=== PATIENT | male | born 1975 | race Caucasian/White ===

== ENCOUNTER → 2016-11-02 | Outpatient (CLI) | payer BC ==
--- NOTE | 2016-11-02 10:58 | DIAGNOSTIC IMAGING REPORT ---
LUMBAR SPINE 5 VIEWS HISTORY: Pain M54.5 Lower back [id number] COMPARISON: None. FINDINGS: Very slight levoscoliosis vertebral body stature is normal. Intervertebral this are well-preserved. No evidence for subluxation. Posterior elements are intact. No subluxation. IMPRESSION: Minimal scoliosis. Otherwise normal study Electronically signed by: Charlie Tejada M.D. 11/02/2016 10:57 AM Dictated Date/Time: 11/02/2016 10:56 AM
== END | disposition home or self-care (01) ==
LOC: C.RAD1850 10:40
PROVIDERS: ATTEND Nurse Practitioner Family
DX: M54.5 Low back pain (principal)

== ENCOUNTER → 2017-04-22 | Outpatient (CLI) | payer BC ==
[2017-04-22 10:28] LABS: ALT/SGPT 79 U/L (12-78); AST/SGOT 28 U/L (15-37); BLOOD UREA NITROGEN 18 mg/dl (7-18); BUN/CREATININE RATIO 17.8 (10-20); CALCIUM 9.2 mg/dl (8.5-10.1); CARBON DIOXIDE 27 mmol/L (21-32); CHLORIDE 106 mmol/L (98-107); CHOLESTEROL 152 mg/dl (0-200); CREATININE 0.99 mg/dl (0.60-1.40); GLUCOSE 105 mg/dl (70-99); POTASSIUM 3.7 mmol/L (3.5-5.1); SODIUM 138 mmol/L (136-145)
[2017-04-22 10:31] LABS: ALB/GLOB RATIO 1.2 (0.9-2); ALKALINE PHOSPHATASE 60 U/L (45-117); CHOLESTEROL/HDL RATIO 4.3; HDL CHOLESTEROL 35 mg/dl; LDL CHOLESTEROL CALCULATED 47 mg/dl; TRIGLYCERIDES 351 mg/dl (0-150); VERY LOW DENSITY LIPOPROT CALC 70 mg/dl
== END | disposition home or self-care (01) ==
LOC: C.LAB1850 08:10
PROVIDERS: ATTEND Nurse Practitioner Family
DX: E78.00 Pure hypercholesterolemia, unspecified (principal); E78.1 Pure hyperglyceridemia; I10 Essential (primary) hypertension

== ENCOUNTER 2017-08-02 11:57 | Emergency (ER) | payer BC, OTHER ==
[~2017-08-02] VITALS: Ht 195.6 cm; Wt 115.0 kg
[2017-08-02 12:02] VITALS: TEMP 37.1; Ht 195.6 cm; Wt 115.0 kg
[2017-08-02] MEDS ORDERED: BUPIVACAINE 0.5 % 5 MG/1 ML MPF 30ML VIAL INFIL STA (12:26)
[2017-08-02] MEDS ORDERED: XYLOCAINE 1%/SOD BICARB 20 ML VIAL INFIL STA (12:26)
--- NOTE | 2017-08-02 13:12 | EMERGENCY ROOM VISIT NOTE ---
ED Visit Note First contact with patient: 12:09 CHIEF COMPLAINT: Finger injury today HISTORY OF PRESENT ILLNESS: This [id number] 42-year-old male patient presents to the emergency department approximately 1 hour after they injured the left middle finger while playing basketball. The patient has been unable to move it at the PIP joint since and there is moderate and constant pain. The patient rates the pain as sharp and 8/10. No previous injuries to the finger. The patient has taken no medications relief of the pain. REVIEW OF SYSTEMS: A 6 system review of systems was completed with positives and pertinent negatives listed in the HPI. ALLERGIES: GERD, hyperlipidemia MEDICATIONS: Atorvastatin, omeprazole PMH: None SOCIAL HISTORY: The patient lives locally with family. He denies drug, alcohol , tobacco use. PHYSICAL EXAM: Vital Signs: Reviewed Nurse's notes, vital signs stable. GENERAL : This is a 42-year-old white male, in no acute distress, but appears to be in pain, well-developed, well-nourished. MUSCULOSKELETAL: There is an obvious deformity at the PIP joint of the left middle finger with dorsal dislocation of the middle phalanx. The patient is unable to move the PIP joint. The distal dislocated portion of the finger is pale but is sensate. SKIN: There is no laceration or abrasion. Capillary refill is less than two seconds. RADIOLOGY: L FINGER(S) MIN 2 VIEWS ROUTINE CLINICAL HISTORY: r/o injury to left 3rd finger trauma. Pain. COMPARISON: None. DISCUSSION: Dorsal dislocation of the proximal interphalangeal joint left third finger. Middle phalanx is displaced dorsally in relation to the proximal. Mild soft tissue edema. The remaining bony structures show no additional acute abnormality. IMPRESSION: Dorsal dislocation of the proximal interphalangeal joint left third finger. Soft tissue edema. The above report was generated using voice recognition software. It may contain grammatical, syntax or spelling errors. Electronically signed by: Charlie Tejada M.D. 08/02/2017 1:17 PM Dictated Date/Time: 08/02/2017 1:16 PM L FINGER(S) MIN 2 VIEWS ROUTINE CLINICAL HISTORY: post-reduction, left 3rd digit COMPARISON: 08/02/2017 DISCUSSION: Anatomic alignment post closed reduction. Mild residual soft tissue edema. No acute bony abnormality. IMPRESSION: Anatomic alignment status post closed reduction. The above report was generated using voice recognition software. It may contain grammatical, syntax or spelling errors. Electronically signed by: Charlie Tejada M.D. 08/02/2017 1:52 PM Dictated Date/Time: 08/02/2017 1:51 PM EMERGENCY DEPARTMENT COURSE: I examined the patient. An X-ray of the left middle finger was reviewed by myself and radiologist and shows dorsal dislocation of the PIP joint of the third digit of the left hand. Verbal consent was obtained to perform the procedure. Using sterile technique the wound was cleansed with Betadine. 5 ml of 1% buffered lidocaine with 0.5% Marcaine was used to perform a digital block to anesthetize the patient.The joint was reduced by applying a steady and rapid axial distraction of the dislocated portion at the PIP joint while the proximal portion was stabilized with the other hand. Following this motion of the joint was normal and full and the patient could move it normally also. Neurovascular status was rechecked and intact. Post-reduction X-ray was reviewed by myself and radiologist and shows anatomic alignment. Patient was given a dose of ibuprofen at his request. Discharge instructions reviewed. The patient was discharged home in stable condition. I attest that I have personally reviewed the patient's current medication list. Patient was found to have normal blood pressure on screening and does not require follow-up. Etiologies such as soft tissue injury, fracture, dislocation, neurovascular compromise, compartment syndrome, as well as others were entertained. DIAGNOSIS: Dislocated PIP joint of the left middle finger Current/Historical Medications Scheduled Atorvastatin (Lipitor), 10 MG PO DAILY Omeprazole (Prilosec), 10 MG PO DAILY [Blood Pressure], 1 TAB PO DAILY Allergies Coded Allergies: No Known Allergies (Unverified , 08/02/17) Vital Signs Date Time Temp Pulse Resp B/P (MAP) Pulse Ox O2 Delivery O2 Flow Rate FiO2 08/02/17 14:00 73 18 141/77 100 08/02/17 12:02 37.1 80 20 150/98 98 Room Air Medications Administered Medications (Trade) Dose Ordered Sig/Lucía Route Start Time Stop Time Status Last Admin Dose Admin Ibuprofen (Motrin Tab) 600 mg NOW STAT PO 08/02/17 13:33 08/02/17 13:34 DC 08/02/17 13:50 600 MG Departure Information Impression Primary Impression: Dislocated finger Dispostion Home / Self-Care Condition GOOD Referrals Demetrio Sahu III, CRNP (PCP) Ruperto Mack D.O. Patient Instructions ED Dislocation Finger Elda, Denice Mirzay Stewart Additional Instructions He was seen in the emergency department today for a finger dislocation. This was successfully reduced. Wear the finger splint for the next 2-3 days to protect the finger and joint. After this time, keep the finger silke taped to the next finger for about 7 days. Ice and elevation for 24 hours. Ibuprofen(Motrin, Advil) may be used for fever or pain. Use 600mg every six hours as needed. Take with food. Avoid using more than 2400mg in a 24 hour period. Do not use 2400mg per day for more than three consecutive days without physician direction. Prolonged inappropriate use can lead to stomach upset or ulcers. (AND/OR) Acetaminophen(Tylenol) may be used for fever or pain. Use 1000mg every six hours as needed. Avoid using more than 3000mg in a 24 hour period. Please follow-up with your PCP within 1 week for reevaluation. If your symptoms worsen, follow-up with orthopedics. You have been provided with the information for a local orthopedic surgeon if you do not already have one. Return to the emergency department for any numbness, tingling, blue discoloration of the finger, severe swelling, increased pain, or other concerning symptoms. Problem Qualifiers Primary Impression: Dislocated finger Encounter type: initial encounter Qualified Codes: S63.259A - Unspecified dislocation of unspecified finger, initial encounter
[2017-08-02] MEDS ORDERED: LPT10 PO (13:15)
[2017-08-02] MEDS ORDERED: PRLSR20 PO (13:15)
[2017-08-02] MEDS ORDERED: BLOOD PRESSURE PO (13:15)
--- NOTE | 2017-08-02 13:18 | DIAGNOSTIC IMAGING REPORT ---
L FINGER(S) MIN 2 VIEWS ROUTINE CLINICAL HISTORY: r/o injury to left 3rd finger trauma. Pain. COMPARISON: None. DISCUSSION: Dorsal dislocation of the proximal interphalangeal joint left third finger. Middle phalanx is displaced dorsally in relation to the proximal. Mild soft tissue edema. The remaining bony structures show no additional acute abnormality. IMPRESSION: Dorsal dislocation of the proximal interphalangeal joint left third finger. Soft tissue edema. The above report was generated using voice recognition software. It may contain grammatical, syntax or spelling errors. Electronically signed by: Charlie Tejada M.D. 08/02/2017 1:17 PM Dictated Date/Time: 08/02/2017 1:16 PM
[2017-08-02] MEDS ORDERED: IBUPROFEN 600 MG TAB PO STA (13:33)
--- NOTE | 2017-08-02 13:53 | DIAGNOSTIC IMAGING REPORT ---
L FINGER(S) MIN 2 VIEWS ROUTINE CLINICAL HISTORY: post-reduction, left 3rd digit COMPARISON: 08/02/2017 DISCUSSION: Anatomic alignment post closed reduction. Mild residual soft tissue edema. No acute bony abnormality. IMPRESSION: Anatomic alignment status post closed reduction. The above report was generated using voice recognition software. It may contain grammatical, syntax or spelling errors. Electronically signed by: Charlie Tejada M.D. 08/02/2017 1:52 PM Dictated Date/Time: 08/02/2017 1:51 PM
[2017-08-02 14:00] VITALS: BP 141/77; PULSE 73; O2SAT 100
== END 2017-08-02 14:00 | disposition home or self-care (01) ==
LOC: C.EDB 11:57 → C.EDD 14:00
DX: S63.203A Unspecified subluxation of left middle finger, initial encounter (principal); X58.XXXA Exposure to other specified factors, initial encounter; Y93.67 Activity, basketball; K21.9 Gastro-esophageal reflux disease without esophagitis; E78.5 Hyperlipidemia, unspecified

== ENCOUNTER 2018-11-23 09:21 | Inpatient (IN) ==
--- OUTSIDE RECORDS SUMMARY | 2018-11-23 09:25 | External Medical Summary | Continuity of Care Document ---
:1975 Author Name Robbie Bartholomew Address Unavailable Unavailable , Care Team Providers Name Role Phone Adelina JACINTO [place]available [email or web address] [email or web address] [place] Unavailable Unavailable [facility] Unavailable Unavailable Problems Psoriasis (696.1) (L40.9) Strain of thoracic region (847.1) (S29.019A) Need for Tdap vaccination (V06.1) (Z23) Lower back pain (724.2) (M54.5) Abnormal EKG (794.31) (R94.31) Gastro-esophageal reflux (530.81) (K21.9) Hypertension (401.9) (I10) High cholesterol (272.0) (E78.00) Allergies and Adverse Reactions No Known Drug Allergies (Allergy) Medications Methocarbamol 500 MG Oral Tablet; TAKE 1 TABLET 4 time s daily PRN ORVILLE Sahu Start: 23-Sep-2016 Quantity: 28 Refills: 1 Lisinopril 20 MG Oral Tablet; TAKE 1 TABLET DAILY D IRECTED. ORVILLE Sahu Start: 18-Apr-2018 Quantity: 30 Refills: 0 Omeprazole 20 MG Oral Tablet Delayed Release; Take 1 tablet daily Start: 23-Oct-2015 Quantity: 30 Refills: 5 Atorvastatin Calcium 10 MG Oral Tablet; TAKE 1 TABLET DAILY. ORVILLE Sahu Start: 20-Oct-2017 Quantity: 30 Refills: 11 Procedures History of Hernia Repair Status: Complet ed Immunizations Immunizations not documented Family History Grandfather Family history of myocardial infarction (V17.3) (Z82.49) Sta tus: Active Father Family history of Drug abuse (305.90) (F19.10) Status: Activ e Family history of cardiac disorder (V17.49) (Z82.49) Status: Active Family history of atrial fibrillation (V17.49) (Z82.49) Stat us: Active Family history of chronic obstructive pulmonary disease (V17 .6) Status: Active (Z82.5) Family history of lung disease (V19.8) (Z83.6) Status: Activ e Family history of kidney stones (V18.69) (Z84.1) Status: Act caroline Mother Family history of chronic obstructive pulmonary disease (V17 .6) Status: Active (Z82.5) Social History - Smoking Status Unknown if ever smoked Never smoker Plan of Treatment Planned Observations Planned Goals not documented Results No Known Results Results not documented Encounters Appointment; Demetrio Sahu CRNP 27-Oct-2017 13:00 Encounter Diagnosis: Problem not documented Appointment; Demetrio Sahu CRNP 27-Apr-2017 13:00 Encounter Diagnosis: Problem not documented Appointment; Nelson Lorenzo M.D. 05-Feb-2017 16:00 Encounter Diagnosis: Problem not documented Appointment; Nelson Lorenzo M.D. 15-Jan-2017 14:45 Encounter Diagnosis: Problem not documented
[2018-11-23] MEDS ORDERED: KETOROLAC TROMETHAMINE 15 MG/ML VIAL IV STA ×2 (09:39→12:41)
[2018-11-23] MEDS ORDERED: DEXAMETHASONE **PF** INJ 10 MG/ML VIAL IV ONE (09:39)
[2018-11-23] MEDS ORDERED: SODIUM CHLORIDE 0.9% 1000ML 1,000 ML IV ONE (09:39)
[2018-11-23] MEDS ORDERED: AMPICILLIN/SULBACTAM SOD 3,000 MG in 0.9 % SODIUM CHLORIDE 100 ML IV STA (09:39)
[2018-11-23] MEDS ORDERED: ACETAMINOPHEN 1,000 MG/100 ML VIAL IV STA (09:39)
--- NOTE | 2018-11-23 10:15 | Emergency Department Note ---
Entered by Franny Silverman acting as a scribe for History of Present Illness General Chief complaint: Sore Throat Stated complaint: PERITONSILLAR ABSCESS ON LEFT Time Seen by Provider: 11/23/18 09:32 Source: patient History of Present Illness Onset (ago): day(s) 3 Location: neck (throat) Pain Consistency: + other (persistent) Maximum Pain Intensity: 6 Quality: + other (sore) Exacerbated By: + other (swallowing) Associated symptoms: + denies other symptoms (shortness of breath, cough, or dental pain) and + other (fevers, dry heaves, voice changes, headaches, increased salivation, and difficulty swallowing) The patient is a 43 year old male that is presenting to the Emergency Room with complaints of a persistent left sided sore throat that started around 36-48 hours ago. The patient reports that he has associated fevers, dry heaves, voice changes, headaches, and difficulty swallowing. He denies any shortness of breath, cough, or dental pain. The patient notes that he has been salivating more since his symptoms began. He states that he has taken Ibuprofen and acetaminophen/Sudafed for his symptoms with his last dose at 0500 this morning. He notes that he has only slept around 3 hours in the past 3 days secondary to the pain. The patient notes that he was seen at [facility] and then sent here. He states that he takes Omeprazole regularly. He denies any significant medical problems. He notes that he is not immunocompromised. Home Medications Home Medications Medication Instructions Recorded Confirmed Type omeprazole 10 mg PO QAM #0 08/02/17 11/23/18 History ibuprofen 200 mg PO Q6H PRN 11/23/18 11/23/18 History phenylephrine HCl [Sudafed PE] 10 mg PO Q6H PRN 11/23/18 11/23/18 History Allergies Allergy/AdvReac Type Severity Reaction Status Date / Time No Known Allergies Allergy Unverified 11/23/18 10:05 Past Med/Surg History Medical History GERD (gastroesophageal reflux disease) (Chronic) HLD (hyperlipidemia) (Chronic) HTN (hypertension) (Chronic) Surgical History H/O inguinal hernia repair (Chronic) Family History Other Cancer Heart disease Social History Preferred Language: Spanish Communication Ability: Effective English Lecturer Required: No Beliefs That Will Affect Care: None marital status: Current Living Situation: Spouse and Family current occupational status: employed Feels Safe at Home: Yes Safety Concerns: Feels Safe At This Time Smoking Status: Never smoker Do You Dip or Chew Tobacco: No Hx Alcohol Use: Yes Alcohol type: beer Alcohol Intake Frequency: Weekly Hx Substance Use: Yes substance use type: marijuana Substance Use Type Other:: smokes occasssionally Review of Systems See HPI for pertinent positives & negatives. and A total of 10 systems reviewed and were otherwise negative Physical Exam Vital Signs Vital Signs - 24 hr 11/23/18 09:27 11/23/18 11:12 11/23/18 11:16 Temperature 37.8 C H 38.8 C H Temperature Source Oral Oral Sepsis Recent Fever Within 48 Hours Yes Sepsis New/Unexplained Change in Mental Status No Sepsis Action Taken by Nursing No Action Required Pulse Rate 95 H 96 H Pulse Rate [Right Finger] 91 H Pulse Rate from SpO2 Sensor 96 H Pulse Rhythm [Right Finger] Regular Pulse Strength [Right Finger] Normal Respiratory Rate 20 20 20 Respiratory Effort / Characteristics Non-Labored Spontaneous Respiratory Depth Normal Respiratory Pattern Regular Blood Pressure 163/108 H 144/90 H Blood Pressure [Left Arm] 144/90 H Blood Pressure Mean 126 108 Blood Pressure Mean [Left Arm] 108 Blood Pressure Position [Left Arm] Sitting Pulse Oximetry 100 96 94 Oxygen Delivery Method Room Air Room Air 11/23/18 11:19 11/23/18 11:30 11/23/18 12:00 Temperature Temperature Source Sepsis Recent Fever Within 48 Hours Sepsis New/Unexplained Change in Mental Status Sepsis Action Taken by Nursing Pulse Rate 106 H 92 H 87 Pulse Rate [Right Finger] Pulse Rate from SpO2 Sensor 103 H 92 H 87 Pulse Rhythm [Right Finger] Pulse Strength [Right Finger] Respiratory Rate 24 21 21 Respiratory Effort / Characteristics Respiratory Depth Respiratory Pattern Blood Pressure 154/94 H 168/95 H Blood Pressure [Left Arm] Blood Pressure Mean 114 119 Blood Pressure Mean [Left Arm] Blood Pressure Position [Left Arm] Pulse Oximetry 96 97 95 Oxygen Delivery Method 11/23/18 12:30 11/23/18 13:00 11/23/18 13:30 Temperature Temperature Source Sepsis Recent Fever Within 48 Hours Sepsis New/Unexplained Change in Mental Status Sepsis Action Taken by Nursing Pulse Rate 90 86 91 H Pulse Rate [Right Finger] Pulse Rate from SpO2 Sensor 90 87 91 H Pulse Rhythm [Right Finger] Pulse Strength [Right Finger] Respiratory Rate 26 H 26 H 27 H Respiratory Effort / Characteristics Respiratory Depth Respiratory Pattern Blood Pressure 166/97 H 155/113 H 184/129 H Blood Pressure [Left Arm] Blood Pressure Mean 120 127 147 Blood Pressure Mean [Left Arm] Blood Pressure Position [Left Arm] Pulse Oximetry 94 96 95 Oxygen Delivery Method 11/23/18 13:35 11/23/18 14:00 11/23/18 14:30 Temperature Temperature Source Sepsis Recent Fever Within 48 Hours Sepsis New/Unexplained Change in Mental Status Sepsis Action Taken by Nursing Pulse Rate 85 85 90 Pulse Rate [Right Finger] Pulse Rate from SpO2 Sensor 84 85 92 H Pulse Rhythm [Right Finger] Pulse Strength [Right Finger] Respiratory Rate 17 23 25 H Respiratory Effort / Characteristics Respiratory Depth Respiratory Pattern Blood Pressure 158/100 H 170/94 H Blood Pressure [Left Arm] Blood Pressure Mean 119 119 Blood Pressure Mean [Left Arm] Blood Pressure Position [Left Arm] Pulse Oximetry 96 95 96 Oxygen Delivery Method 11/23/18 15:00 11/23/18 15:03 Temperature Temperature Source Sepsis Recent Fever Within 48 Hours Sepsis New/Unexplained Change in Mental Status Sepsis Action Taken by Nursing Pulse Rate 87 85 Pulse Rate [Right Finger] Pulse Rate from SpO2 Sensor 87 85 Pulse Rhythm [Right Finger] Pulse Strength [Right Finger] Respiratory Rate 16 18 Respiratory Effort / Characteristics Respiratory Depth Respiratory Pattern Blood Pressure 142/98 H Blood Pressure [Left Arm] Blood Pressure Mean 112 Blood Pressure Mean [Left Arm] Blood Pressure Position [Left Arm] Pulse Oximetry 96 97 Oxygen Delivery Method GENERAL: Patient is in no acute distress. Muffled voice. HEENT: No acute trauma, normocephalic atraumatic, mucous membranes moist, no nasal congestion, no scleral icterus. Left TM normal. Left tonsil somewhat swollen and full. No uvular edema or shift. Some throat erythema was noted without exudate. No swelling to the floor of the mouth. No dental abscess seen. Trismus noted. NECK: No stridor, no meningismus, trachea is midline. Area of fullness and swelling to the left neck and to the underside of the mandible. No erythema. This area is quite tender. LUNGS: Clear to auscultation bilaterally, no wheeze, no rhonchi, breath sounds equal. HEART: Without murmurs gallops or rubs, regular rate and rhythm. ABDOMEN: Soft, nontender, bowel sounds positive, no hernias, no peritonitis. EXTREMITIES: No cyanosis or edema, full range of motion of all the joints without pain or difficulty, no signs for acute trauma. NEUROLOGIC: Oriented x 3, no acute motor or sensory deficits, no focal weakness. SKIN: No rash, no jaundice, no diaphoresis. Course 0933:The patient was evaluated in room B07. A complete history and physical examination was performed. 1100: I revisited the patient at this time but he was in transit to [place]. 1110: I updated the patient on his current lab and imaging results. 1116: I discussed the patients case with Dr. Oneil nurse who stated that MANSOOR Matt, is currently in a procedure and will provide a consult when he is available. 1239: I revisited the patient at this time. He states that his pain is mostly unchanged since his arrival. 1248: I discussed the patient's case with Ashutosh Teran PA-C, who will evaluate the patient for further management and care with Dr. Roberson as the attending physician. 1255: Upon reevaluation, the patient is resting comfortably. I discussed laboratory and radiographic results with the patient. He verbalized agreement of the treatment plan. The patient will be evaluated for further management and care. 1444: I discussed the patient's case with MANSOOR Matt, who indicated that the patient had a cellulitis. He notes that there is nothing surgical at this point. Consultations Consultation #1: I discussed the patient's case with Ashutosh Teran, who will evaluate the patient for further management and care with Dr. Roberson as the attending physician. Time: 12:48 Consultation #2: I discussed the patient's case with MANSOOR Matt, who indicated that the patient had a cellulitis. He notes that there is nothing surgical at this point. Time: 14:44 Administered Medications Discontinued Medications Dexamethasone Sodium Phosphate (Decadron Pf) 10 mg IV NOW ONE Stop: 11/23/18 09:40 Last Admin: 11/23/18 10:13 Dose: 10 mg Documented by: [id number] Acetaminophen (Ofirmev) 1,000 mg in 100 mls @ 400 mls/hr IV NOW STA Stop: 11/23/18 09:53 Last Infusion: 11/23/18 11:20 Dose: 0 mls/hr Documented by: [id number] Admin: 11/23/18 10:12 Dose: 400 mls/hr Documented by: [id number] Ampicillin Sodium/Sulbactam Sodium 3,000 mg/ Sodium Chloride 108 mls @ 200 mls/hr IV NOW STA; Protocol Stop: 11/23/18 10:11 Last Infusion: 11/23/18 11:21 Dose: 0 mls/hr Documented by: [id number] Admin: 11/23/18 10:00 Dose: 200 mls/hr Documented by: [id number] Sodium Chloride (Nss 1000ml) 1,000 mls @ 999 mls/hr IV .Q1H1M ONE Stop: 11/23/18 10:39 Last Infusion: 11/23/18 11:21 Dose: 0 mls/hr Documented by: [id number] Admin: 11/23/18 10:13 Dose: 999 mls/hr Documented by: [id number] Sodium Chloride (Nss 1000ml) 500 mls @ 999 mls/hr IV .Q31M ONE Stop: 11/23/18 12:47 Last Infusion: 11/23/18 13:02 Dose: 0 mls/hr Documented by: [id number] Admin: 11/23/18 12:29 Dose: 999 mls/hr Documented by: [id number] Ketorolac Tromethamine (Toradol) 15 mg IV NOW STA Stop: 11/23/18 09:40 Last Admin: 11/23/18 10:13 Dose: 15 mg Documented by: [id number] Ketorolac Tromethamine (Toradol) 15 mg IV NOW STA Stop: 11/23/18 12:42 Last Admin: 11/23/18 12:47 Dose: 15 mg Documented by: [id number] Morphine Sulfate (Morphine Sulfate) 4 mg IV NOW STA Stop: 11/23/18 12:42 Last Admin: 11/23/18 12:47 Dose: 4 mg Documented by: [id number] Medical Decision Making Differential Diagnosis Differential diagnosis: Etiologies such as peritonsillar abscess, tonsillar cellulitis, salivary gland infection, parotid gland inflammation, cellulitis, adenopathy, tonsillitis, dental abscess as well as others were entertained. Medical Records Attestation: I reviewed the patient's medical records. Home Medications Current Medication List: was personally reviewed by me Laboratory Data Attestation: I reviewed the patient's lab results. Result diagrams: 11/23/18 10:00 11/23/18 10:00 Lab Results 11/23/18 11/23/18 11/23/18 Range/Units 10:00 10:00 14:27 WBC 18.92 H (4.8-10.8) K/uL RBC 4.95 (4.7-6.1) M/uL Hgb 14.3 (14.0-18.0) g/dL Hct 39.3 L (42-52) % MCV 79.4 L (80-100) fL MCH 28.9 (25-34) pg MCHC 36.4 H (32-36) g/dL RDW Std Deviation 37.0 (36.4-46.3) fL RDW Coeff of Cecilia 12.9 (11.5-14.5) % Plt Count 142 (130-400) K/uL MPV 9.9 (7.4-10.4) fL Immature Gran % (Auto) 0.3 % Neut % (Auto) 80.9 % Lymph % (Auto) 4.7 % Antelope % (Auto) 14.0 % Eos % (Auto) 0.0 % Baso % (Auto) 0.1 % Immature Gran # (Auto) 0.06 H (0.00-0.02) K/uL Neut # (Auto) 15.31 H (1.4-6.5) K/uL Lymph # (Auto) 0.89 L (1.2-3.4) K/uL Antelope # (Auto) 2.65 H (0.11-0.59) K/uL Eos # (Auto) 0.00 (0-0.5) K/uL Baso # (Auto) 0.01 (0-0.2) K/uL Sodium 138 (136-145) mmol/L Potassium 3.7 (3.5-5.1) mmol/L Chloride 105 (98-107) mmol/L Carbon Dioxide 25 (21-32) mmol/L Anion Gap 8.0 (3-11) BUN 15 (7-18) mg/dl Creatinine 1.20 (0.6-1.4) mg/dl Est Cr Clr Drug Dosing 102.1 ml/min Est GFR ( Amer) 86.5 Est GFR (Non-Af Amer) 74.7 BUN/Creatinine Ratio 12.1 (10-20) Glucose 113 H (70-99) mg/dl Lactate 1.0 (0.4-2.0) mmol/L Calcium 8.9 (8.5-10.1) mg/dl Imaging Data Radiologist's Impression: Radiology results as stated below per my review and the radiologist's interpretation: NECK ULTRASOUND CLINICAL HISTORY: Left neck pain and fullness. Possible abscess. COMPARISON STUDY: No previous studies for comparison. TECHNIQUE: Sonography of the left neck with comparison sonography of the right neck was performed. FINDINGS: No abscess is identified within neck by sonography. An enlarged left level 2 lymph node has a thickened cortex and measures 1.9 x 1.7 x 1.4 cm. Mildly enlarged right cervical lymph nodes are noted. Index right level 2 node measures 1.7 x 1.2 x 1.2 cm. IMPRESSION: 1. No fluid collection within the left neck to suggest abscess by sonography. 2. Moderate left and mild right cervical lymphadenopathy. This is likely reactive however follow-up to ensure resolution is recommended. Electronically signed by: Mele Mckeon M.D. 11/23/2018 10:54 AM Blood Pressure Blood Pressure Findings: Elevated blood pressure Blood Pressure Disposition: further management by hospitalist [facility] Narrative There is a significant leukocytosis at 18,000, this is consistent with infection. No concerning anemia. No significant electrolyte abnormality or kidney failure. Lactic acid level is not elevated making severe sepsis less likely. Soft tissue neck ultrasound does not show evidence for abscess, adenopathy was seen. On exam, there was no airway compromise. The patient did not have swelling to the floor of the mouth. He did have what appeared to be some edema to the left tonsil and he had some trismus as well as a hoarse sounding voice. There was no uvular edema or uvular shift. The patient was given IV Tylenol, IV Unasyn, IV Decadron, IV Toradol. He was given IV saline. He eventually received an additional IV saline bolus, he was given IV Toradol again for pain, IV morphine for pain. I think the patient has a left tonsillar cellulitis. I do not believe there is evidence at this point for drainable peritonsillar abscess. I did consult ENT, they saw the patient in the ED and there was no need for emergent drainage. Given the findings, given the inability to swallow, I do think a hospital stay is warranted. The patient requires IV antibiotic therapy, IV steroid therapy. He requires hydration. I did speak with the on-call hospitalist. The case management is aware of the findings. Patient is feeling somewhat improved and happy with his care. Impression & Plan Cellulitis of tonsil, Trismus, Leukocytosis, Trouble swallowing Discharge Plan Visit Data Chief Complaint: Sore Throat Stated Complaint: PERITONSILLAR ABSCESS ON LEFT ED Provider: Sukumar Owens Discharge Problem: Cellulitis of tonsil, Trismus, Leukocytosis, Trouble swallowing Patient Disposition: Being Evaluated by Hospitalist Forms Stand Alone Forms: My [facility] Prescriptions Prescriptions: No Action omeprazole 10 mg Capsule,Delayed Release(Dr/Ec) 10 mg PO QAM Qty: 0 RF: 0 ibuprofen 200 mg Tablet 200 mg PO Q6H PRN (Reason: Pain) RF: 0 Sudafed PE 10 mg Tablet 10 mg PO Q6H PRN (Reason: Congestion) RF: 0 Referrals Referrals: PCP,NO [Primary Care Provider] - The scribe's documentation has been prepared under my direction and personally reviewed by me in its entirety. I confirm that the note above accurately reflects all work, treatment, procedures, and medical decision making performed by me.
[2018-11-23 10:19] LABS: Basophils # (auto) 0.01 K/uL (0-0.2); Basophils % (auto) 0.1 %; Hematocrit (blood only) 39.3 % (42-52); Hemoglobin 14.3 g/dL (14.0-18.0); Immature Granulocytes # (auto) 0.06 K/uL (0.00-0.02); Immature Granulocytes % (auto) 0.3 %; Lymphocytes # (auto) 0.89 K/uL (1.2-3.4); Lymphocytes % (auto) 4.7 %; Mean Corpuscular Hgb Conc 36.4 g/dL (32-36); Mean Corpuscular Volume 79.4 fL (80-100); Mean Platelet Volume 9.9 fL (7.4-10.4); Monocytes # (auto) 2.65 K/uL (0.11-0.59); Neutrophils # (auto) 15.31 K/uL (1.4-6.5); Neutrophils % (auto) 80.9 %; Platelet Count 142 K/uL (130-400); RDW Coefficient of Variation 12.9 % (11.5-14.5); Red Blood Count 4.95 M/uL (4.7-6.1); White Blood Count 18.92 K/uL (4.8-10.8)
[2018-11-23 10:37] LABS: BUN Creatinine Ratio 12.1 (10-20); Calcium 8.9 mg/dl (8.5-10.1); Creatinine Clr Calc Pharmacy 102.1 ml/min; Est GFR (African American) 86.5; Est GFR (Non-African American) 74.7; Potassium 3.7 mmol/L (3.5-5.1)
--- NOTE | 2018-11-23 10:56 | Ultrasound Report ---
NECK ULTRASOUND CLINICAL HISTORY: Left neck pain and fullness. Possible abscess. COMPARISON STUDY: No previous studies for comparison. TECHNIQUE: Sonography of the left neck with comparison sonography of the right neck was performed. FINDINGS: No abscess is identified within neck by sonography. An enlarged left level 2 lymph node has a thickened cortex and measures 1.9 x 1.7 x 1.4 cm. Mildly enlarged right cervical lymph nodes are n oted. Index right level 2 node measures 1.7 x 1.2 x 1.2 cm. IMPRESSION: 1. No fluid collection within the left neck to suggest abscess by sonography. 2. Moderate left and mild right cervical lymphadenopathy. This is likely reactive however follow-up t o ensure resolution is recommended. Electronically signed by: Mele Mckeon M.D. 11/23/2018 10:54 AM
[2018-11-23] MEDS ORDERED: SODIUM CHLORIDE 0.9% 1000ML 500 ML IV ONE (12:17)
[2018-11-23] MEDS ORDERED: MoRPHine SULFATE 4 MG/ML 1 ML CARP\\VIAL IV STA (12:41)
--- NOTE | 2018-11-23 13:56 | History & Physical Report ---
Date of Service November 23, 2018 Assessment & Plan (1) Sepsis: This is a 43yo M with a PMH of HTN, HLD and GERD who presents with sore throat x 2 days and was found to have tonsillar cellulitis that meets sepsis criteria. Febrile at 38.8, tachypneic at 27, leukocytosis of 18k in setting of tonsillar cellulitis Blood cultures and lactate pending Started on Unasyn Receiving IV fluids (2) Cellulitis of tonsil: Sore throat with trismus, odynophagia and reactive lymphadenopathy Evaluated by Dr. Benedict with ENT in ED. Does not feel this is a peritonsillar abscess Recommended admission, as well as continued Unasyn and an additional dose of De xamethasone 10mg (Dr. Benedict cell: [phone]) Head/neck ultrasound without evidence of fluid collection to suggest abscess by sonography Will advance to clear liquids as tolerated (3) HTN (hypertension): BP elevated at 170/94 in setting of pain Optimize pain control, add PRN antihypertensive agent if indicated DVT Ppx: Micha terrell Code status: FULL PCP: No PCP Dispo: Admitted to [facility]. Plan to return home once medically stable. Patient seen in collaboration with Dr. Roberson. Please see addendum. History of Present Illness Chief Complaint: sore throat Primary Care Provider: NO PCP This is a 43yo M with a PMH of HTN, HLD and GERD who presents with sore throat x 2 days. Patient developed a sore throat prior to flying home from [facility] [place]. Yesterday, sore throat continued but patient also experienced fever, chills, dry heaves, difficulty swallowing and voice changes. Also has sore lymph nodes on left neck and left ear fullness. Has not had much oral intake. Slept intermittently last night due to pain. Denies any sick contacts within family. No shortness of breath or respiratory distress. Has been taking ibuprofen and Sudafed at home with most recent dose at 0500. Was evaluated at [facility] earlier today and sent to ED for concern for peritonsillar abscess. In ED, patient found to be febrile at 38.8C and tachypneic at 27. Leukocytosis of 18K. Blood cultures and lactate pending. Head/neck ultrasound without fluid collection within the left neck to suggest abscess by sonography. Moderate left and mild right cervical lymphadenopathy. This is likely reactive however follow- up to ensure resolution is recommended. ED physician discussed with on-call ENT, who will evaluate the patient in the next hour. Does have past medical history of hypertension and hyperlipidemia for which he used to take medication, but stopped 6 months ago due to attempting to control naturally. Denies headache, lightheadedness, cough, chest pain, palpitations, abdominal pain, nausea, vomiting, dysuria, constipation or diarrhea. Allergies Allergy/AdvReac Type Severity Reaction Status Date / Time No Known Allergies Allergy Unverified 11/23/18 10:05 Home Medications Home Medications Medication Instructions Recorded Confirmed Type omeprazole 10 mg PO QAM #0 08/02/17 11/23/18 History ibuprofen 200 mg PO Q6H PRN 11/23/18 11/23/18 History phenylephrine HCl [Sudafed PE] 10 mg PO Q6H PRN 11/23/18 11/23/18 History Past Med/Surg History Medical History GERD (gastroesophageal reflux disease) (Chronic) HLD (hyperlipidemia) (Chronic) HTN (hypertension) (Chronic) Surgical History H/O inguinal hernia repair (Chronic) Family History Other Cancer Heart disease Social History marital status: Current Living Situation: Spouse and Family current occupational status: employed Feels Safe at Home: Yes Smoking Status: Never smoker Hx Alcohol Use: Yes Alcohol type: beer Alcohol Intake Frequency: Weekly Hx Substance Use: No Review of Systems Review of Systems: At least ten systems reviewed and negative except as noted in the HPI. Physical Exam Physical Exam: General Appearance: WD/WN, appears acutely ill Head: normocephalic, atraumatic Eyes: normal inspection, PERRL, EOMI ENT: hearing grossly normal, left ear with pearly maravilla TM, no surrounding erythema. + 3 finger trismus, voice muffled. Unable to fully visualize tonsils 2/2 trismus Neck: supple, no JVD, left submandibular lymphadenopathy Respiratory/Chest: lungs clear to auscultation. No wheezes, rales or rhonci. No respiratory distress or accessory muscle use Cardiovascular: regular rate, rhythm, no murmur, normal peripheral pulses Abdomen/GI: normal bowel sounds, soft, non-tender to palpation Extremities/Musculoskelatal: normal inspection, no calf tenderness, normal capillary refill, no pedal edema Neurologic/Psych: alert, normal mood/affect, oriented x 3 Skin: normal color, warm/dry Results & Data Vital Signs (Past 12 Hours) Vital Signs Temp Pulse Pulse Resp BP BP Pulse Ox 11/23/18 13:30 91 H 27 H 184/129 H 95 11/23/18 13:00 86 26 H 155/113 H 96 11/23/18 12:30 90 26 H 166/97 H 94 11/23/18 12:00 87 21 168/95 H 95 11/23/18 11:30 92 H 21 154/94 H 97 11/23/18 11:19 106 H 24 96 11/23/18 11:16 38.8 C H 91 H 20 144/90 H 94 11/23/18 11:12 96 H 20 144/90 H 96 11/23/18 09:27 37.8 C H 95 H 20 163/108 H 100 Laboratory Results Short CBC 11/23/18 Range/Units 10:00 WBC 18.92 H (4.8-10.8) K/uL Hgb 14.3 (14.0-18.0) g/dL Hct 39.3 L (42-52) % Plt Count 142 (130-400) K/uL BMP 11/23/18 10:00 Sodium 138 Potassium 3.7 Chloride 105 Carbon Dioxide 25 BUN 15 Creatinine 1.20 Glucose 113 H Calcium 8.9 Diagnostic Findings Head/neck ultrasound: IMPRESSION: 1. No fluid collection within the left neck to suggest abscess by sonography. 2. Moderate left and mild right cervical lymphadenopathy. This is likely reactive however follow-up to ensure resolution is recommended. Supervising Physician Co-Signing Physician Notes Patient is a 43-year-old male with history of GERD, hypertension and other problems presents with history of sore throat, neck swelling, dysphagia, fever, chills, insomnia, increased salivation, frontal headache and hoarse voice since 2 days duration. Patient recently traveled back from [place] [facility] [place]. Patient denies any chest pain, shortness of breath, dizziness, nausea vomiting, abdom inal pain. While in ED patient was found to be febrile, has elevated white count at 18.9 and normal lactate levels. CT neck suggestive of moderate left and mid to right cervical lymphadenopathy. Patient was evaluated by ENT Dr. Rousseau and was diagnosed to have tonsillar cellulitis. On exam patient is moderately built and nourished, no apparent distress, normocephalic atraumatic, Neck+ lymphadenopahty, Tonsils difficult to visualize due to pain, lungs are clear to auscultation, S1-S2, no murmur, abdomen soft nontender, grossly no focal neurological deficits, no pedal edema, + psoriatic lesions noted on extremities. Patient is admitted for management of sepsis secondary to tonsillar cellulitis. Agree with IV fluids, IV Unasyn, Decadron, blood cultures obtained. Blood pressure elevated likely situational. Will control pain. If blood pressure remains elevated will start on hypertensive meds. Clear liquid diet and advance as tolerated. Appreciate ENT input. I personally reviewed the record. Patient is interviewed and examined at bedside. Patient's care is coordinated with Vilma Borjas PA-C. Please refer to the documentation above for details of patient's presentation and for discussion of other issues.
--- NOTE | 2018-11-23 15:03 | ENT Consultation ---
Date of Consultation I was asked to see this patient by Dr. Winslow of the ED and [facility] Hospitalist, Dr. Borjas. The purpose was to r/o left ELDERLY SITTER. Patient was interviewed along with his . He feels much better s/p meds provided in the ED. November 23, 2018 Assessment & Plan (1) Cellulitis of tonsil: I have spoken with Dr. Winslow and Dr. Borjas. I concur with diagnosis of left tonsillar infection with cellulitis. I do NOT recommend for a CT scan at this time. He should continue with salt water gargles, IV antibiotics, Decadron 10mf x one more dose 12 hours after last dose, and Unisyn. PLEASE CALL ME ON MY CELL PHONE ([phone]) FOR DETERIORATION IN CONDITION. Present on Admission?: Yes History of Present Illness Reason for Consultation: Rule out left ELDERLY SITTER. Requesting Physician: Dr. Borjas and Dr. Winslow History of Present Illness 43 year old man interviewed in ED (B-7) with his present. Sore throat and swelling with dysphagia for the last day. Feels better s/p meds provided in ED. Allergies Allergy/AdvReac Type Severity Reaction Status Date / Time No Known Allergies Allergy Unverified 11/23/18 10:05 Home Medications Home Medications Medication Instructions Recorded Confirmed Type omeprazole 10 mg PO QAM #0 08/02/17 11/23/18 History ibuprofen 200 mg PO Q6H PRN 11/23/18 11/23/18 History phenylephrine HCl [Sudafed PE] 10 mg PO Q6H PRN 11/23/18 11/23/18 History Patient History Medical History GERD (gastroesophageal reflux disease) (Chronic) HLD (hyperlipidemia) (Chronic) HTN (hypertension) (Chronic) Surgical History H/O inguinal hernia repair (Chronic) Family History Other Cancer Heart disease Social History marital status: Current Living Situation: Spouse and Family current occupational status: employed Feels Safe at Home: Yes Smoking Status: Never smoker Hx Alcohol Use: Yes Alcohol type: beer Alcohol Intake Frequency: Weekly Hx Substance Use: No Physical Exam Physical Exam: General: No hot potato voice. No stridor. OP/OC: No trismus. No fullness in the peritonsillar area. No uvular deviation. + enlargement of left tonsil with edema of the left posterior tonsillar pillar. There was only minimal erythema and no debris in the left tonsil. Results & Data Vital Signs (Past 12 Hours) Vital Signs Temp Pulse Pulse Resp BP BP Pulse Ox 11/23/18 14:00 85 23 170/94 H 95 11/23/18 13:35 85 17 158/100 H 96 11/23/18 13:30 91 H 27 H 184/129 H 95 11/23/18 13:00 86 26 H 155/113 H 96 11/23/18 12:30 90 26 H 166/97 H 94 11/23/18 12:00 87 21 168/95 H 95 11/23/18 11:30 92 H 21 154/94 H 97 11/23/18 11:19 106 H 24 96 11/23/18 11:16 38.8 C H 91 H 20 144/90 H 94 11/23/18 11:12 96 H 20 144/90 H 96 11/23/18 09:27 37.8 C H 95 H 20 163/108 H 100
[2018-11-23] MEDS ORDERED: ONDANSETRON INJ 2 MG/ML 2 ML VIAL IV PRN (17:01)
[2018-11-23] MEDS ORDERED: POLYETHYLENE (MIRALAX) 17 GM PACK PO PRN (17:01)
[2018-11-23] MEDS ORDERED: ACETAMINOPHEN 1,000 MG/100 ML VIAL IV PRN (17:01)
[2018-11-23] MEDS ORDERED: AMPICILLIN/SULBACTAM CONSULT ACTIVE PRN (17:19)
[2018-11-23] MEDS: AMPICILLIN/SULBACTAM SOD 3,000 MG in 0.9 % SODIUM CHLORIDE 100 ML IV SCH ×2 (17:34→23:22)
[2018-11-23] MEDS: SODIUM CHLORIDE 0.9% 1000ML 1,000 ML IV SCH (17:34)
[2018-11-23] MEDS: KETOROLAC TROMETHAMINE 15 MG/ML VIAL IV PRN (17:39)
[2018-11-23] MEDS ORDERED: DEXAMETHASONE SOD PHOSPHATE 10 MG in SYRINGE 0 ML IV ONE (21:00)
[2018-11-23] MEDS: MoRPHine SULFATE 4 MG/ML 1 ML CARP\\VIAL IV PRN (21:07)
[2018-11-24] MEDS: MoRPHine SULFATE 4 MG/ML 1 ML CARP\\VIAL IV PRN ×2 (03:56→13:38)
[2018-11-24] MEDS: SODIUM CHLORIDE 0.9% 1000ML 1,000 ML IV SCH ×2 (04:00→13:35)
[2018-11-24] MEDS: AMPICILLIN/SULBACTAM SOD 3,000 MG in 0.9 % SODIUM CHLORIDE 100 ML IV SCH ×2 (05:03→10:38)
[2018-11-24 06:24] LABS: Hematocrit (blood only) 35.8 % (42-52); Hemoglobin 12.7 g/dL (14.0-18.0); Mean Corpuscular Hgb Conc 35.5 g/dL (32-36); Mean Corpuscular Volume 79.9 fL (80-100); Mean Platelet Volume 10.4 fL (7.4-10.4); Platelet Count 140 K/uL (130-400); RDW Coefficient of Variation 12.7 % (11.5-14.5); Red Blood Count 4.48 M/uL (4.7-6.1); White Blood Count 15.94 K/uL (4.8-10.8)
[2018-11-24 06:57] LABS: BUN Creatinine Ratio 18.7 (10-20); Calcium 8.6 mg/dl (8.5-10.1); Creatinine Clr Calc Pharmacy 130.3 ml/min; Est GFR (African American) 116.3; Est GFR (Non-African American) 100.3; Potassium 3.9 mmol/L (3.5-5.1)
[2018-11-24] MEDS: KETOROLAC TROMETHAMINE 15 MG/ML VIAL IV PRN (07:48)
[2018-11-24] MEDS ORDERED: PANTOprazole 40 MG TAB PO SCH (09:00)
--- NOTE | 2018-11-24 09:46 | Hospitalist Progress Note ---
Date of Service November 24, 2018 Assessment & Plan (1) Cellulitis of tonsil: Pt presented with c/o sore throat, painful swallowing. Pt met Sepsis criteria on admission with fever of 38.8C, RR: 27, WBC: 18. Lactic acid was WNL Neck US without evidence of fluid collection to suggest abscess by sonography ENT consult - Dr Benedict. Does not feel there is a peritonsillar abscess. Recommended 2 total doses of dexamethasone 10mg IV and Unasyn. (Dr. Benedict cell: [phone]) 11/23/18: No further fevers. Pt with mild decreased sore throat & neck and some decreased pain with swallowing. 11/23/18 WBC downtrended to 15.9 Continue IVF Toradol, Morphine prn pain Clear diet, advance as tolerated (2) GERD (gastroesophageal reflux disease): Continue PPI (3) HTN (hypertension): BP was elevated at admission BP improved this morning to 136/76 Continue pain control DVT Prophylaxis: Micha terrell, Ambulate Pt was seen and care coordinated with Dr Mckeon. See addendum Supervising Physician Co-Signing Physician Notes Pt was seen and examined. Agreed with ALVARADO Nuñez exam, assessment and plan. Pt does not want to stay in the hospital for another night. He said that he needs to sleep and unable to sleep while in the hospital. I told him that i will send him to a private room so that he can have some quiet time that he can sleep. He refused and said that he wants to leave. I told him about the risk for signing AMA such as worsening infection, sepsis, respiratory distress/failure and even . Pt understood the risk for leaving AMA. Will give pt a script for Augmentin and prednisone. Pt signed AMA. MD Linda Subjective Pt seen and examined. Sitting up in bed. Reports some slightly decreased left throat pain and left neck pain. Still with pain with swallowing. Is able to swallow but doesn't want to secondary to pain. Has been using bedside suction. He was able to tolerate some broth last night but otherwise has not been drinking much. Reports able to open mouth more and with less pain today. Had slight BUSTILLOS this morning relieved with Toradol. Denies fever/chills, diaphoresis, N/V/D, dizziness, vision changes, CP, SOB, palpitations, cough, choking, otalgia, rhinorrhea, abdominal pain, paresthesias, weakness, extremity edema, rashes, urinary symptoms. Review of Systems Review of Systems: All systems reviewed & are unremarkable except as noted in HPI & below Physical Exam Physical Exam: General: no distress, WDWN Head: normocephalic, atraumatic Eyes: PERRL, EOM's intact, conjunctiva non-injected, anicteric ENT: normal inspection external ears, nose, Pharynx: uvula midline, tonsils without significant erythema or edema and without exudate, no soft palate edema, mucous membranes moist Neck: supple, trachea midline, left neck with submandibular edema extending to left neck, skin without erythema, +tenderness to palpation. Chin to chest and lateral ROM neck intact. Lungs: clear, no respiratory distress, no wheezing/rhonchi/rales CV: RRR, no murmur, no pretibial edema Abd: normal BS, soft, non-tender Ext: no cyanosis, no calf tenderness Neuro: A&O x 3, no focal deficits noted, normal affect Skin: warm, dry; +silver plaques noted to upper extremities Results & Data Vital Signs (Past 12 Hours) Vital Signs Temp Pulse Pulse Resp BP Pulse Ox 11/24/18 08:00 86 11/24/18 07:51 36.9 C 85 18 136/76 96 11/24/18 04:00 36.7 C 88 20 160/91 H 96 11/24/18 00:00 36.8 C 69 20 132/80 91 11/23/18 23:20 81 Laboratory Results Short CBC 11/23/18 11/24/18 Range/Units 10:00 05:58 WBC 18.92 H 15.94 H (4.8-10.8) K/uL Hgb 14.3 12.7 L (14.0-18.0) g/dL Hct 39.3 L 35.8 L (42-52) % Plt Count 142 140 (130-400) K/uL BMP 11/23/18 11/24/18 10:00 05:58 Sodium 138 141 Potassium 3.7 3.9 Chloride 105 109 H Carbon Dioxide 25 25 BUN 15 18 Creatinine 1.20 0.94 Glucose 113 H 131 H Calcium 8.9 8.6
--- NOTE | 2018-11-24 15:40 | Discharge Summary ---
Date of Service November 24, 2018 Admission HPI Per Admitting Provider This is a 43yo M with a PMH of HTN, HLD and GERD who presents with sore throat x 2 days. Patient developed a sore throat prior to flying home from [place]. Yesterday, sore throat continued but patient also experienced fever, chills, dry heaves, difficulty swallowing and voice changes. Also has sore lymph nodes on left neck and left ear fullness. Has not had much oral intake. Slept intermittently last night due to pain. Denies any sick contacts within family. No shortness of breath or respiratory distress. Has been taking ibuprofen and Sudafed at home with most recent dose at 0500. Was evaluated at [facility] earlier today and sent to ED for concern for peritonsillar abscess. In ED, patient found to be febrile at 38.8C and tachypneic at 27. Leukocytosis of 18K. Blood cultures and lactate pending. Head/neck ultrasound without fluid collection within the left neck to suggest abscess by sonography. Moderate left and mild right cervical lymphadenopathy. This is likely reactive however follow- up to ensure resolution is recommended. ED physician discussed with on-call ENT, who will evaluate the patient in the next hour. Does have past medical history of hypertension and hyperlipidemia for which he used to take medication, but stopped 6 months ago due to attempting to control naturally. Denies headache, lightheadedness, cough, chest pain, palpitations, abdominal pain, nausea, vomiting, dysuria, constipation or diarrhea. Admission Exam Per Admitting Provider General Appearance: WD/WN, appears acutely ill Head: normocephalic, atraumatic Eyes: normal inspection, PERRL, EOMI ENT: hearing grossly normal, left ear with pearly maravilla TM, no surrounding erythema. + 3 finger trismus, voice muffled. Unable to fully visualize tonsils 2/2 trismus Neck: supple, no JVD, left submandibular lymphadenopathy Respiratory/Chest: lungs clear to auscultation. No wheezes, rales or rhonchi. No respiratory distress or accessory muscle use Cardiovascular: regular rate, rhythm, no murmur, normal peripheral pulses Abdomen/GI: normal bowel sounds, soft, non-tender to palpation Extremities/Musculoskelatal: normal inspection, no calf tenderness, normal capillary refill, no pedal edema Neurologic/Psych: alert, normal mood/affect, oriented x 3 Skin: normal color, warm/dry Principal Diagnosis Tonsillar Cellulitis Discharge Exam General: no distress, WDWN Head: normocephalic, atraumatic Eyes: PERRL, EOM's intact, conjunctiva non-injected, anicteric ENT: normal inspection external ears, nose, Pharynx: uvula midline, tonsils without significant erythema or edema and without exudate, no soft palate edema, mucous membranes moist Neck: supple, trachea midline, left neck with submandibular edema extending to left neck, skin without erythema, +tenderness to palpation. Chin to chest and lateral ROM neck intact. Lungs: clear, no respiratory distress, no wheezing/rhonchi/rales CV: RRR, no murmur, no pretibial edema Abd: normal BS, soft, non-tender Ext: no cyanosis, no calf tenderness Neuro: A&O x 3, no focal deficits noted, normal affect Skin: warm, dry; +silver plaques noted to upper extremities Discharge Data Allergies Allergy/AdvReac Type Severity Reaction Status Date / Time No Known Drug Allergies Allergy Verified 11/29/18 10:[address] Rousseau: (1) Cellulitis of tonsil: I concur with diagnosis of left tonsillar infection with cellulitis. I do NOT recommend for a CT scan at this time. He should continue with salt water gargles, IV antibiotics, Decadron 10mg x one more dose 12 hours after last dose, and Unasyn. Procedures Performed Laboratory Results - last 48 hr 11/23/18 11/23/18 11/23/18 10:00 10:00 14:27 WBC 18.92 H RBC 4.95 Hgb 14.3 Hct 39.3 L MCV 79.4 L MCH 28.9 MCHC 36.4 H RDW Std Deviation 37.0 RDW Coeff of Cecilia 12.9 Plt Count 142 MPV 9.9 Immature Gran % (Auto) 0.3 Neut % (Auto) 80.9 Lymph % (Auto) 4.7 Highland % (Auto) 14.0 Eos % (Auto) 0.0 Baso % (Auto) 0.1 Immature Gran # (Auto) 0.06 H Neut # (Auto) 15.31 H Lymph # (Auto) 0.89 L Highland # (Auto) 2.65 H Eos # (Auto) 0.00 Baso # (Auto) 0.01 Sodium 138 Potassium 3.7 Chloride 105 Carbon Dioxide 25 Anion Gap 8.0 BUN 15 Creatinine 1.20 Est Cr Clr Drug Dosing 102.1 Est GFR ( Amer) 86.5 Est GFR (Non-Af Amer) 74.7 BUN/Creatinine Ratio 12.1 Glucose 113 H Lactate 1.0 Calcium 8.9 11/24/18 11/24/18 05:58 05:58 WBC 15.94 H RBC 4.48 L Hgb 12.7 L Hct 35.8 L MCV 79.9 L MCH 28.3 MCHC 35.5 RDW Std Deviation 37.0 RDW Coeff of Cecilia 12.7 Plt Count 140 MPV 10.4 Immature Gran % (Auto) Neut % (Auto) Lymph % (Auto) Highland % (Auto) Eos % (Auto) Baso % (Auto) Immature Gran # (Auto) Neut # (Auto) Lymph # (Auto) Highland # (Auto) Eos # (Auto) Baso # (Auto) Sodium 141 Potassium 3.9 Chloride 109 H Carbon Dioxide 25 Anion Gap 7.0 BUN 18 Creatinine 0.94 Est Cr Clr Drug Dosing 130.3 Est GFR ( Amer) 116.3 Est GFR (Non-Af Amer) 100.3 BUN/Creatinine Ratio 18.7 Glucose 131 H Lactate Calcium 8.6 Ordered Studies US soft tissue head and neck IMPRESSION: 1. No fluid collection within the left neck to suggest abscess by sonography. 2. Moderate left and mild right cervical lymphadenopathy. This is likely reactive however follow-up to ensure resolution is recommended. Hospital Course (1) Cellulitis of tonsil: Pt presented with c/o sore throat, painful swallowing. Pt met Sepsis criteria on admission with fever of 38.8C, RR: 27, WBC: 18. Lactic acid was WNL. Neck US without evidence of fluid collection to suggest abscess by sonography. ENT consult - Dr Benedict. Does not feel there is a peritonsillar abscess. Recommended 2 total doses of dexamethasone 10mg IV and Unasyn. 11/23/18: No further fevers. Pt with mild decreased sore throat & neck and some decreased pain with swallowing. WBC downtrended to 15.9. Pt received IVF, Toradol & Morphine for pain. Tolerating clear diet. Pt decided wanted to sign out AMA. Risks discussed with pt including worsening medical condition, respiratory distress, respiratory failure, sepsis, and pt expresses understanding. Pt will be given Rx for Augmentin and prednisone. He will need close out patient follow up and pt does not have PCP. He should follow up with ENT. He has been instructed to return to ER if worsening symptoms, fever/chills, respiratory distress, dysphagia. (2) GERD (gastroesophageal reflux disease): Continue PPI (3) HTN (hypertension): BP was elevated at admission. BP improved during hospital course. Probable secondary to pain. Total Time Total Time Spent Total Time Spent (In Minutes): 30 minutes Discharge Plan Discharge Items Patient Disposition: Against Medical Advice Reason For Visit: SORE THROAT,DIFFICULTY SWALLOWING Discharge Diagnosis: Cellulitis of tonsil Discharge Goals: Decrease discomfort and Improve disease control Activity: Resume your previous activity Activity Comment: As toleraed Non-emergency contact: Primary Care Provider Call non-emergency contact if: your temperature is above 101 Follow-up/Referrals: PCP,NO [Primary Care Provider] - Diet: Regular Addtl Provider Instructions: Pt signed against medical advice Advised patient to complete course of antibiotic Advised patient to follow with primary care provider Advised patient to seek medical attention, If fever develops or symptoms worsening Follow a soft diet for now and advance gradually as tolerated Prescriptions: No Action omeprazole 10 mg Capsule,Delayed Release(Dr/Ec) 10 mg PO QAM Qty: 0 RF: 0 lisinopril 20 mg tablet PO .TAKE 1 TABLET DAILY Qty: 30 RF: 0 atorvastatin 10 mg tablet PO .TAKE 1 TABLET DAILY. Qty: 30 RF: 0 methocarbamol 500 mg tablet 1 PO .TAKE 1 TABLET 4 time Qty: 28 RF: 0 acetaminophen [Tylenol Extra Strength] 500 mg Tablet 1,000 mg PO UD PRN (Reason: Pain) RF: 0 amlodipine [Norvasc] 5 mg Tablet 5 mg PO QAM Qty: 30 RF: 2 clindamycin HCl 300 mg capsule 300 mg PO TID 7 Days Qty: 21 RF: 0 amoxicillin-pot clavulanate [Augmentin] 875-125 mg tablet 1 tab PO Q12H 7 Days Qty: 14 RF: 0 Discharge Orders: Left Against Medical Advice (Routine); Ordered 11/24/18 Ordered By: Russell Mckeon Admission Data Admit Date/Time: 11/23/18 13:18 Attending Provider: Russell Mckeon Admit Provider: Ahsan Roberson Primary Care Provider: PCP,NO Other Providers: Ahsan Roberson Service: Telemetry Medical Other Interventions: Discharge Summary Assessment (RN) Last Done: 11/24/18 16:44 DC Date/Time DO NOT enter until pt leaves facility: 11/24/18 16:46 Supervising Physician Co-Signing Physician Notes Patient signed AMA.
== END 2018-11-24 16:46 | disposition left against medical advice (07) | DRG 872 ==
LOC: ED 09:21 → 2N 13:18
DX: J36 Peritonsillar abscess; K21.9 Gastro-esophageal reflux disease without esophagitis; I10 Essential (primary) hypertension; A41.9 Sepsis, unspecified organism

== ENCOUNTER 2018-11-25 11:56 | Observation (INO) ==
[2018-11-25 12:39] LABS: Basophils # (auto) 0.01 K/uL (0-0.2); Basophils % (auto) 0.1 %; Hematocrit (blood only) 36.3 % (42-52); Hemoglobin 12.7 g/dL (14.0-18.0); Immature Granulocytes # (auto) 0.03 K/uL (0.00-0.02); Immature Granulocytes % (auto) 0.2 %; Lymphocytes # (auto) 1.34 K/uL (1.2-3.4); Lymphocytes % (auto) 9.8 %; Mean Corpuscular Volume 80.8 fL (80-100); Mean Platelet Volume 10.2 fL (7.4-10.4); Monocytes # (auto) 0.68 K/uL (0.11-0.59); Neutrophils % (auto) 84.9 %; Platelet Count 142 K/uL (130-400); RDW Standard Deviation 38.6 fL (36.4-46.3); Red Blood Count 4.49 M/uL (4.7-6.1); White Blood Count 13.66 K/uL (4.8-10.8)
[2018-11-25] MEDS ORDERED: AMPICILLIN/SULBACTAM SOD 3,000 MG in 0.9 % SODIUM CHLORIDE 100 ML IV STA (12:48)
[2018-11-25] MEDS ORDERED: ONDANSETRON INJ 2 MG/ML 2 ML VIAL IV STA (12:48)
[2018-11-25] MEDS ORDERED: SODIUM CHLORIDE 0.9% 1000ML 1,000 ML IV STA (12:48)
[2018-11-25] MEDS ORDERED: HYDROmorphone INJ 0.5 MG/0.5 ML SYR IV PRN (12:48)
[2018-11-25] MEDS ORDERED: SODIUM CHLORIDE 0.9% 1000ML 1,000 ML IV ONE (12:48)
[2018-11-25 12:58] LABS: Albumin Level 3.5 gm/dl (3.4-5.0); BUN Creatinine Ratio 23.1 (10-20); Creatinine Clr Calc Pharmacy 123.8 ml/min; Est GFR (African American) 109.2; Est GFR (Non-African American) 94.2; Potassium 3.8 mmol/L (3.5-5.1)
[2018-11-25 13:00] LABS: Albumin Globulin Ratio 1.1 (0.9-2); Bilirubin,Total 1.7 mg/dl (0.2-1); Globulin 3.3 gm/dl (2.5-4.0); Total Protein 6.8 gm/dl (6.4-8.2)
--- NOTE | 2018-11-25 13:48 | History & Physical Report ---
Date of Service November 25, 2018 Assessment & Plan (1) Peritonsillar abscess: This is a 43yo M with a PMH of cellulitis of left tonsil who returns to ED with throat pain and difficulty swallowing and was found to have peritonsillar abscess. -Patient returns today after leaving AMA yesterday with worsening throat pain and difficulty swallowing -Soft tissue neck CT with a 3.6 cm left peritonsillar abscess with extension of inflammatory change in the parapharyngeal, retropharyngeal, and carotid spaces. No extension of inflammation to the superior mediastinum. Vasculature patent. Reactive left cervical lymphadenopathy. -Discussed with Dr. Rousseau, who evaluated patient this afternoon -Will add clinda 900mg Q8H and IV Decadron 10mg x 1 now -Clear liquids for now, NPO after midnight -Unasyn, IV fluids, pain control (2) HTN (hypertension): History of hypertension but does not take any medication at home -Will add PRN agent if needed (3) Insomnia: In setting of steroids -Ambien HS PRN (4) GERD (gastroesophageal reflux disease): Continue PPI DVT Ppx: srinivas terrell Code status: FULL PCP: none Dispo: Observation med/surg. Plan to return home once medically stable. Patient seen in collaboration with Dr. Cain. Please see addendum. History of Present Illness Chief Complaint: throat pain Primary Care Provider: NO PCP This is a 43yo M with a PMH of left tonsil cellulitis who returns to ED with throat pain and difficulty swallowing. Patient was admitted to our service on 11/23/18 with tonsillar cellulitis meeting sepsis criteria with fever of 38.8C, respiratory rate of 27, and leukocytosis of 18. Neck ultrasound without evidence of fluid collection to suggest abscess by sonography. Dr. Rousseau of ENT evaluated patient in ED and did not feel there is was peritonsillar abscess at that time. Received two total doses of dexamethasone 10mg IV and Unasyn. Yesterday afternoon, patient signed out AMA and was discharged on Augmentin and prednisone but was instructed to return to ED with worsening throat pain or difficulty swallowing. Patient returns today with worsening throat pain and difficulty swallowing. Is worried that he is not drinking enough fluids to stay hydrated due to painful swallowing. Also is concerned that he is not sleeping due to side effects from steroids. Denies any difficulty breathing. Denies any fever or chills. Still has left ear fullness and pain under his left jaw. Denies any headache, chest pain, palpitations, nausea, vomiting, abdominal pain, dysuria, diarrhea or constipation. Afebrile on presentation today. Leukocytosis of 13K down to 18 K. Saturating at 96% on room air. Discussed with Dr. Rousseau of ENT on the phone, who recommended continuing Unasyn and obtaining CT soft tissue neck with contrast. Allergies Allergy/AdvReac Type Severity Reaction Status Date / Time No Known Allergies Allergy Unverified 11/25/18 12:26 Home Medications Home Medications Medication Instructions Recorded Confirmed Type omeprazole 10 mg PO QAM #0 08/02/17 11/25/18 History amoxicillin-pot clavulanate 1 tab PO Q12H #7 tab 11/24/18 11/25/18 Rx [Augmentin] prednisone 40 mg PO DAILY #5 tab 11/24/18 11/25/18 Rx acetaminophen [Tylenol Extra 1,000 mg PO UD PRN 11/25/18 11/25/18 History Strength] Past Med/Surg History Medical History GERD (gastroesophageal reflux disease) (Chronic) HLD (hyperlipidemia) (Chronic) HTN (hypertension) (Chronic) Surgical History H/O inguinal hernia repair (Chronic) Family History Other Cancer Heart disease Social History Preferred Language: Ecuadorean Communication Ability: Effective 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 Beliefs That Will Affect Care: None marital status: Current Living Situation: Spouse and Family current occupational status: employed Other Information That Helps Us Care for You: No Feels Safe at Home: Yes Safety Concerns: Feels Safe At This Time Smoking Status: Never smoker Do You Dip or Chew Tobacco: No Second Hand Exposure: No Tobacco Cessation Education Requested by Patient: No Hx Alcohol Use: Yes Alcohol type: beer Alcohol Intake Frequency: Weekly Hx Substance Use: Yes substance use type: marijuana Substance Use Type Other:: smokes occasssionally Last Used Substance: Unknown Review of Systems Review of Systems: At least ten systems reviewed and negative except as noted in the HPI. Physical Exam Physical Exam: General Appearance: WD/WN, appears acutely ill. Oxygen saturation 96% on room air Head: normocephalic, atraumatic Eyes: normal inspection, PERRL, EOMI ENT: hearing grossly normal, left tonsil with soft palate swelling and deviation of uvula to the right. No trismus or muffled voice Neck: supple, no JVD, left submandibular lymphadenopathy Respiratory/Chest: lungs clear to auscultation. No wheezes, rales or rhonci. No respiratory distress or accessory muscle use Cardiovascular: regular rate, rhythm, no murmur, normal peripheral pulses Abdomen/GI: normal bowel sounds, soft, non-tender to palpation Extremities/Musculoskelatal: normal inspection, no calf tenderness, normal capillary refill, no pedal edema Neurologic/Psych: alert, normal mood/affect, oriented x 3 Skin: normal color, warm/dry Results & Data Vital Signs (Past 12 Hours) Vital Signs Temp Pulse Pulse Resp BP BP Pulse Ox 11/25/18 13:16 73 16 142/103 H 98 11/25/18 11:58 37.2 C 75 18 154/92 H 100 Laboratory Results Short CBC 11/25/18 Range/Units 12:32 WBC 13.66 H (4.8-10.8) K/uL Hgb 12.7 L (14.0-18.0) g/dL Hct 36.3 L (42-52) % Plt Count 142 (130-400) K/uL BMP 11/25/18 12:32 Sodium 142 Potassium 3.8 Chloride 111 H Carbon Dioxide 24 BUN 23 H Creatinine 0.99 Glucose 96 Calcium 9.0 Liver Function 11/25/18 Range/Units 12:32 Total Bilirubin 1.7 H (0.2-1) mg/dl AST 27 (15-37) U/L ALT 45 (12-78) U/L Alkaline Phosphatase 57 (45-117) U/L Albumin 3.5 (3.4-5.0) gm/dl Diagnostic Findings Soft tissue neck CT: IMPRESSION: 1. 3.6 cm left peritonsillar abscess with extension of inflammatory change in the parapharyngeal, retropharyngeal, and carotid spaces. No extension of inflammation to the superior mediastinum. Vasculature patent. Reactive left cervical lymphadenopathy. 2. Inflammation also results in mucosal thickening of the hypopharynx resulting in effacement of the left aspect of the hypopharynx. Supervising Physician Co-Signing Physician Notes Attending addendum The patient was seen and examined the medical floor He was admitted with left tonsillitis with possible adjoining fluid collection/abscess Has been feeling better since admission Complains today of pain especially when swallowing but no shortness of breath On examination Left upper neck swelling and tender on palpation Hemodynamically stable Chest-clear to auscultate bilaterally Heart-S1-S2 regular Neck-left upper neck swelling, increased local temperature without redness, tonsils palpable and tender Labs and imaging studies noted Appreciate ENT input and recommendation Agree with assessment and plan as outlined above by ALVARADO Teran Dr
[2018-11-25] MEDS ORDERED: IOVERSOL 100ml IV PRN (14:16)
--- NOTE | 2018-11-25 14:28 | CT Scan Report ---
CT soft tissue neck w con CLINICAL HISTORY: 43 years-old Male presenting with tonsillar infxn, eval for abscess, neck space inf x. TECHNIQUE: Multidetector CT of the neck was performed after the administration of intravenous contras t. IV contrast: 94 mL of Optiray 320. One or more dose lowering techniques were used consistent with the principles of ALARA (as low as reasonably achievable), including automatic exposure control, mA o r kV adjustment to individual patient size, and/or use of iterative reconstruction. COMPARISON: Ultrasound of the neck from 11/23/2018. CT DOSE (mGy.cm): The estimated cumulative dose is 529.18 mGy.cm. FINDINGS: Psychological Anthropologist topogram: Unremarkable. Polypoid mucosal thickening in the left maxillary sinus. Remainder of the paranasal sinuses and masto id air cells clear. Limited intracranial evaluation within normal limits. Orbits normal. Multilobular rim-enhancing collection in the left palantine tonsil measuring up to 3.6 cm in diameter . This results in significant effacement of the left glossotonsillar sulcus and left follicular. Ther e is also extension of mucosal thickening inferiorly resulting in partial effacement of the left perf ormed sinus. Aerated secretions noted in the hypopharynx. Mild hyperenhancement and mild hyperplasia of the lingual tonsillar tissue. Right palantine tonsil normal. There is suspected trace infiltration of the retropharyngeal fat plane. This does not involve the prevertebral musculature. This extends l aterally to involve the post styloid parapharyngeal space/carotid space. Inflammatory change does not extend below the level of the cricoid cartilage. Vasculature remains patent. The larynx and upper trachea remain patent. Enlarged left cervical lymph nodes primarily in level 2A. Parotid, submandibular, and thyroid glands normal. No extension of inflammatory change to the superio r mediastinum. Lung apices clear. Cervical spine normal. Skull base intact. IMPRESSION: 1. 3.6 cm left peritonsillar abscess with extension of inflammatory change in the parapharyngeal, re tropharyngeal, and carotid spaces. No extension of inflammation to the superior mediastinum. Vasculat ure patent. Reactive left cervical lymphadenopathy. 2. Inflammation also results in mucosal thickening of the hypopharynx resulting in effacement of the left aspect of the hypopharynx. Electronically signed by: David Burton M.D. 11/25/2018 2:27 PM
[2018-11-25] MEDS ORDERED: POLYETHYLENE (MIRALAX) 17 GM PACK PO PRN (15:00)
[2018-11-25] MEDS ORDERED: ACETAMINOPHEN 1,000 MG/100 ML VIAL IV PRN (15:00)
[2018-11-25] MEDS ORDERED: ONDANSETRON INJ 2 MG/ML 2 ML VIAL IV PRN (15:00)
[2018-11-25] MEDS ORDERED: AMPICILLIN/SULBACTAM CONSULT ACTIVE PRN (15:28)
[2018-11-25] MEDS: KETOROLAC TROMETHAMINE 15 MG/ML VIAL IV PRN (15:42)
--- NOTE | 2018-11-25 15:56 | Emergency Department Note ---
Entered by Louise Billy acting as a scribe for ED Provider Note CHIEF COMPLAINT: Sore throat HISTORY OF PRESENT ILLNESS: The patient is a 43 year old male who presents to the Emergency Room with complaints of a sore throat that began 5 days ago. The patient is having pain in his ears and the left side of this throat. Due to the swelling, he is having difficulty talking normally. Per the patient's , about 6 days the patient had a total of 13 hours of sleep the night after returning from [place] and when he awoke, his symptoms came and have been worsening. He then went to the hospital a few days ago and left because he was unable to sleep in the hospital. The patient was diagnosed with tonsillitis. Today the patients symptoms are wo rsening again and he took a Prednizone three hours ago. The patient rates his pain as a 6 out of 10 in severity and is having difficulty swallowing. The patient states he has psoriasis. Pt denies LOC, headache, fevers, chills, diaphoresis, visual changes, neck pain, chest pain, breathing difficulties, nausea, vomiting, abdominal pain, back pain, melena, hematochezia, urinary symptoms, numbness, weakness, lymphadenopathy, rash, or other complaints. REVIEW OF SYSTEMS: See HPI for pertinent positives and negatives. A total of ten systems were reviewed and were otherwise negative. PMHx/PSHx: Sepsis, H/O inguinal hernia repair, HLD, HTN SOCIAL HISTORY: Patient lives at home. PHYSICAL EXAM: GENERAL: Awake, alert, well-appearing, in no distress HENT: Midline swelling about the left tonsil area. EYES: PERRL. Normal conjunctiva. Sclera non-icteric. NECK: Left adenopathy on neck, left cervical adenopathy and tenderness, hot potato voice and trismus. FROM. No masses. RESPIRATORY: Clear to auscultation. No wheezes. No rales. Normal respiratory effort. CARDIAC: Normal rate. Normal rhythm. No murmurs. No rubs. Extremities warm and well perfused. Pulses equal. No JVD. GI: Soft, non-distended. No tenderness to palpation. No rebound or guarding. No masses. RECTAL: Deferred. MUSCULOSKELETAL: Atraumatic. Chest examination reveals no tenderness. The back is symmetrical on inspection without obvious abnormality. There is no CVA tenderness to palpation. No joint edema. LOWER EXTREMITIES: Calves are equal size bilaterally and non-tender. No edema. No discoloration. NEURO: Normal sensorium. No sensory or motor deficits noted. SKIN: No rash or jaundice noted EMERGENCY DEPARTMENT COURSE: 1242: Past medical records reviewed. The patient was evaluated in room C11B, and a complete history and physical examination were performed. 1305: I spoke with Kelly Teran PA-C, about the patient's case and she said that Dr. Cain, [facility] hospitalist, will accept for admission. 1320: The patient will be admitted. MEDICAL DECISION MAKING: Prior records/ancillary studies reviewed. The patient was seen by ENT and diagnosed with peritonsillar cellulitis. He was doing well in the hospital however desired discharge AGAINST MEDICAL ADVICE. Triage Nursing notes reviewed and agree them. Additional history obtained from the patient's significant other. The patient's history was concerning for fever, chills, and sore throat. Differential diagnosis: Etiologies such as peritonsillar cellulitis, airway compromise, peritonsillar abscess, viral syndrome, retropharyngeal abscess, tonsillitis, otitis, pneumonia, influenza, as well as others were entertained. ER treatment provided: IV Dilaudid IV Zofran Normal saline hydrate IV Unasyn Diagnostics interpreted by me: The labs revealed mild leukocytosis on CBC. Chemistry panel unremarkable. Imaging studies: Deferred Consultation[facility] was [facility]. Patient was seen in the ER for readmission. IMPRESSION: Peritonsillar cellulitis Leukocytosis PLAN: Admitted The scribe's documentation has been prepared under my direction and personally reviewed by me in its entirety. I confirm that the note above accurately reflects all work, treatment, procedures, and medical decision making performed by me. Impression & Plan Peritonsillar cellulitis Past Med/Surg History Medical History GERD (gastroesophageal reflux disease) (Chronic) HLD (hyperlipidemia) (Chronic) HTN (hypertension) (Chronic) Surgical History H/O inguinal hernia repair (Chronic) Family History Other Cancer Heart disease Social History Preferred Language: Ukrainian Communication Ability: Effective Ball Ender Required: No Beliefs That Will Affect Care: None marital status: Current Living Situation: Spouse and Family current occupational status: employed Other Information That Helps Us Care for You: No Feels Safe at Home: Yes Safety Concerns: Feels Safe At This Time Smoking Status: Never smoker Do You Dip or Chew Tobacco: No Second Hand Exposure: No Tobacco Cessation Education Requested by Patient: No Hx Alcohol Use: Yes Alcohol type: beer Alcohol Intake Frequency: Weekly Hx Substance Use: Yes substance use type: marijuana Substance Use Type Other:: smokes occasssionally Last Used Substance: Unknown Results & Data Vital Signs Vital Signs - 24 hr 11/25/18 11:58 11/25/18 13:16 Temperature 37.2 C Temperature Source Oral Sepsis Recent Fever Within 48 Hours Yes Sepsis Action Taken by Nursing No Action Required Pulse Rate 75 Pulse Rate [Right Finger] 73 Respiratory Rate 18 16 Respiratory Effort / Characteristics Non-Labored Spontaneous Respiratory Depth Normal Respiratory Pattern Regular Blood Pressure 154/92 H Blood Pressure [Left Arm] 142/103 H Blood Pressure Mean 112 Blood Pressure Mean [Left Arm] 116 Blood Pressure Position Sitting Pulse Oximetry 100 98 Oxygen Delivery Method Room Air Home Medications Current Medication List: was personally reviewed by me Laboratory Data Attestation: I reviewed the patient's lab results. Result diagrams: 11/25/18 12:32 11/25/18 12:32 Lab Results 11/25/18 11/25/18 Range/Units 12:32 12:32 WBC 13.66 H (4.8-10.8) K/uL RBC 4.49 L (4.7-6.1) M/uL Hgb 12.7 L (14.0-18.0) g/dL Hct 36.3 L (42-52) % MCV 80.8 (80-100) fL MCH 28.3 (25-34) pg MCHC 35.0 (32-36) g/dL RDW Std Deviation 38.6 (36.4-46.3) fL RDW Coeff of Cecilia 13.0 (11.5-14.5) % Plt Count 142 (130-400) K/uL MPV 10.2 (7.4-10.4) fL Immature Gran % (Auto) 0.2 % Neut % (Auto) 84.9 % Lymph % (Auto) 9.8 % Owsley % (Auto) 5.0 % Eos % (Auto) 0.0 % Baso % (Auto) 0.1 % Immature Gran # (Auto) 0.03 H (0.00-0.02) K/uL Neut # (Auto) 11.60 H (1.4-6.5) K/uL Lymph # (Auto) 1.34 (1.2-3.4) K/uL Owsley # (Auto) 0.68 H (0.11-0.59) K/uL Eos # (Auto) 0.00 (0-0.5) K/uL Baso # (Auto) 0.01 (0-0.2) K/uL Sodium 142 (136-145) mmol/L Potassium 3.8 (3.5-5.1) mmol/L Chloride 111 H (98-107) mmol/L Carbon Dioxide 24 (21-32) mmol/L Anion Gap 7.0 (3-11) BUN 23 H (7-18) mg/dl Creatinine 0.99 (0.6-1.4) mg/dl Est Cr Clr Drug Dosing 123.8 ml/min Est GFR ( Amer) 109.2 Est GFR (Non-Af Amer) 94.2 BUN/Creatinine Ratio 23.1 H (10-20) Glucose 96 (70-99) mg/dl Calcium 9.0 (8.5-10.1) mg/dl Total Bilirubin 1.7 H (0.2-1) mg/dl AST 27 (15-37) U/L ALT 45 (12-78) U/L Alkaline Phosphatase 57 (45-117) U/L Total Protein 6.8 (6.4-8.2) gm/dl Albumin 3.5 (3.4-5.0) gm/dl Globulin 3.3 (2.5-4.0) gm/dl Albumin/Globulin Ratio 1.1 (0.9-2) Administered Medications Sodium Chloride (Nss 1000ml) 1,000 mls @ 125 mls/hr IV .Q8H STA Stop: 11/25/18 20:47 Last Admin: 11/25/18 15:27 Dose: 125 mls/hr Documented by: [id number] Ketorolac Tromethamine (Toradol) 15 mg IV Q6H PRN PRN Reason: Pain Stop: 11/30/18 14:59 Last Admin: 11/25/18 15:42 Dose: 15 mg Documented by: [id number] Discontinued Medications Hydromorphone HCl (Dilaudid) 0.5 mg IV Q15M PRN PRN Reason: Pain Stop: 12/09/18 12:47 Last Admin: 11/25/18 13:15 Dose: 0.5 mg Documented by: [id number] Sodium Chloride (Nss 1000ml) 1,000 mls @ 999 mls/hr IV .Q1H1M ONE Stop: 11/25/18 13:48 Last Infusion: 11/25/18 14:17 Dose: 0 mls/hr Documented by: [id number] Admin: 11/25/18 13:15 Dose: 999 mls/hr Documented by: [id number] Ampicillin Sodium/Sulbactam Sodium 3,000 mg/ Sodium Chloride 108 mls @ 200 mls/hr IV NOW STA; Protocol Stop: 11/25/18 13:20 Last Infusion: 11/25/18 14:01 Dose: 0 mls/hr Documented by: [id number] Admin: 11/25/18 13:28 Dose: 200 mls/hr Documented by: [id number] Ioversol (Optiray 320 100ml) 94 ml IV ONCE PRN PRN Reason: Interaction Checking Stop: 11/29/18 14:15 Last Admin: 11/25/18 14:17 Dose: 94 ml Documented by: [id number] Ondansetron HCl (Zofran) 4 mg IV NOW STA Stop: 11/25/18 12:49 Last Admin: 11/25/18 13:15 Dose: 4 mg Documented by: [id number] Blood Pressure Blood Pressure Findings: Elevated blood pressure Blood Pressure Disposition: Referred to patients primary care provider Discharge Plan Visit Data *Final* Discharge Date/Time: 11/25/18 14:11 Chief Complaint: Throat Pain Stated Complaint: EXTREME THROAT PAIN,SWELLING,HEAD PAIN ED Provider: [facility] Discharge Problem: Peritonsillar cellulitis Patient Disposition: Admitted As Inpatient Discharge Instructions Interventions: ED Discharge Assessment Last Done: 11/25/18 14:11 The scribe's documentation has been prepared under my direction and personally reviewed by me in its entirety. I confirm that the note above accurately reflects all work, treatment, procedures, and medical decision making performed by me.
[2018-11-25] MEDS: MoRPHine SULFATE 4 MG/ML 1 ML CARP\\VIAL IV PRN ×2 (16:32→21:03)
[2018-11-25] MEDS ORDERED: DEXAMETHASONE SOD PHOSPHATE 10 MG in SYRINGE 0 ML IV STA (17:30)
--- NOTE | 2018-11-25 17:30 | Ears,Nose,Throat Progress Note ---
Date of Service November 25, 2018 Assessment & Plan (1) Peritonsillar abscess: This is a very peculiar situation. He does not have the classic findings of a peritonsillar abscess. He does not appear toxic, his fever has defervesced, and there has been a decrease in his white blood cell count. He does not appear toxic and has no airway distress. I must agree that the CT scan is consistent with a abscess. The patient may require being taken to the OR in the not too distant future if his condition worsens. However, he has no airway distress at this time, is afebrile, and has had decreasing white blood cell count. There is no evidence of any extension to the mediastinum. I have discussed his care with [facility] hospitalist, Dr. Vilma Borjas, and I requested that he start to receive clindamycin 900 mg IV piggyback every 8 hours. I have also cleared him to have clear liquids for p.o. intake. I asked for Decadron ~10 mg IV if IV push x1. I will return to see the patient tomorrow morning. 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 I last saw him 2 days ago on November 23, 2018. He was admitted with a left peritonsillar cellulitis. He responded well to Unasyn and IV steroids but left AGAINST MEDICAL ADVICE yesterday, November 24. At the time of his presentation to the emergency department on November 23, he had a white count of 18,000 and temperature 102. Today he came back still having trouble swallowing and was admitted. He does not have a temperature elevation and his white count is down to 13,000. However, at my direction, he did have a CT scan of the neck with contrast. I have reviewed the study with Dr. David Burton of radiology. It showed an abscess in the retropharyngeal area with no extension in the mediastinum. Physical Exam Physical Exam: The patient was examined in room 422. His was present. He did not appear toxic. He did have a slight hot potato voice. He did not have fetid breath. Exam of the oral cavity showed no abnormality of the floor of the mouth or the tongue. He had no trismus. Exam of the oropharynx showed edema of the posterior pharyngeal wall and posterior tonsillar pillar on the left. There was no fullness in the peritonsillar area. There was no uvular deviation. Palpation of the neck showed no fluctuance and no significant cervical lymphadenopathy. Given the patient's CT findings, I discussed the patient I decided to that he would undergo potential aspiration of an abscess. This was done in the following manner. First, Hurricaine spray was sprayed in the back of the throat to provide certain degree of topical anesthesia before the procedure. He had already received Toradol 15 mg IV push before my arrival. He had also received 4 mg of morphine IV push at my request 5 minutes before the procedure. After this a number 18-gauge needle with 10 cc control syringe was used to aspirate in the left peritonsillar area. This returned no pus and no blood. I then placed the needle in the posterior tonsillar pillar and went towards the retropharyngeal area. Still, there was no pus. He tolerated the procedure well. Results & Data Vital Signs (Past 12 Hours) Vital Signs Temp Pulse Pulse Resp BP BP Pulse Ox 11/25/18 15:32 37.0 C 74 20 159/99 H 98 11/25/18 13:54 78 17 149/96 H 96 11/25/18 13:16 73 16 142/103 H 98 11/25/18 11:58 37.2 C 75 18 154/92 H 100
[2018-11-25] MEDS: CLINDAMYCIN 900 MG in DEXTROSE 5% 50 ML IV SCH (18:09)
[2018-11-25] MEDS: AMPICILLIN/SULBACTAM SOD 3,000 MG in 0.9 % SODIUM CHLORIDE 100 ML IV SCH (21:02)
[2018-11-26] MEDS: CLINDAMYCIN 900 MG in DEXTROSE 5% 50 ML IV SCH ×3 (01:13→17:32)
[2018-11-26] MEDS: MoRPHine SULFATE 4 MG/ML 1 ML CARP\\VIAL IV PRN (01:13)
[2018-11-26] MEDS: ZOLPIDEM TARTRATE 5 MG TAB PO PRN ×2 (01:13→21:47)
[2018-11-26] MEDS: AMPICILLIN/SULBACTAM SOD 3,000 MG in 0.9 % SODIUM CHLORIDE 100 ML IV SCH ×4 (01:41→20:10)
[2018-11-26 06:23] LABS: Hematocrit (blood only) 37.4 % (42-52); Hemoglobin 12.9 g/dL (14.0-18.0); Mean Corpuscular Hgb Conc 34.5 g/dL (32-36); Mean Platelet Volume 10.3 fL (7.4-10.4); Platelet Count 137 K/uL (130-400); RDW Coefficient of Variation 12.9 % (11.5-14.5); RDW Standard Deviation 38.3 fL (36.4-46.3); Red Blood Count 4.62 M/uL (4.7-6.1); White Blood Count 9.39 K/uL (4.8-10.8)
[2018-11-26 06:56] LABS: BUN Creatinine Ratio 21.9 (10-20); Calcium 8.5 mg/dl (8.5-10.1); Creatinine Clr Calc Pharmacy 139.2 ml/min; Est GFR (African American) 123.7; Est GFR (Non-African American) 106.7; Potassium 4.1 mmol/L (3.5-5.1)
[2018-11-26] MEDS: LACTOBACILLUS ACIDOPHILUS (FLORANEX) TAB PO SCH ×3 (08:52→17:33)
[2018-11-26] MEDS: PANTOprazole 40 MG TAB PO SCH (08:53)
--- NOTE | 2018-11-26 09:43 | Ears,Nose,Throat Progress Note ---
Date of Service November 26, 2018 Assessment & Plan (1) Peritonsillar abscess: He has shown dramatic improvement since the one-time dose of Decadron and adding clindamycin 900 mg IV piggyback every 8 hours. I recommend that this regimen of Unasyn and clindamycin continue until Wednesday. I asked his to bring in live culture yogurt from home. I asked Vilma Borjas to make sure he had probiotics. I will see him again tomorrow morning. I will most likely recommend that he go home on Augmentin and clindamycin for another week after discharge. He should return to see me on December 02 at my [facility] office. Present on Admission?: Yes Subjective I interviewed the patient in room 422 this morning. I also spoke to his and Harry Borjas PA-C. He described feeling dramatically improved from yesterday, and describes no negative side effects from the needle aspirations done in his oropharynx. I also spoke to his nurse, Diane, and she shared her impression of dramatic improvement since last night. Physical Exam Physical Exam: He appeared to be in good spirits and his voice was dramatically improved. Exam of the oropharynx showed 90 to 95% resolution of his edema experienced yesterday. His aspiration sites were healing nicely. There was no fetid breath. Results & Data Vital Signs (Past 12 Hours) Vital Signs Temp Pulse Resp BP Pulse Ox 11/26/18 08:42 36.7 C 58 L 19 158/97 H 97
[2018-11-26] MEDS: KETOROLAC TROMETHAMINE 15 MG/ML VIAL IV PRN ×2 (11:31→21:14)
--- NOTE | 2018-11-26 14:58 | Hospitalist Progress Note ---
Date of Service November 26, 2018 Assessment & Plan (1) Peritonsillar abscess: This is a 43yo M with a PMH of cellulitis of left tonsil who returns to ED with throat pain and difficulty swallowing and was found to have peritonsillar abscess. -Patient returns today after leaving AMA yesterday with worsening throat pain and difficulty swallowing -Soft tissue neck CT with a 3.6 cm left peritonsillar abscess with extension of inflammatory change in the parapharyngeal, retropharyngeal, and carotid spaces. No extension of inflammation to the superior mediastinum. Vasculature patent. Reactive left cervical lymphadenopathy. -Discussed with Dr. Rousseau, who evaluated patient this afternoon -Will add clinda 900mg Q8H and IV Decadron 10mg x 1 now -Clinically and symptomatically a lot better -Has been tolerating semisolid diet without any dysphagia -No observable neck swelling -Plan to continue IV antibiotic today and tomorrow and likely discharge on Wednesday on oral Augmentin and clindamycin (2) HTN (hypertension): History of hypertension but does not take any medication at home -Will add PRN agent if needed (3) Insomnia: In setting of steroids -Ambien HS PRN (4) GERD (gastroesophageal reflux disease): Continue PPI DVT Ppx: srinivas terrell . Increase ambulation Code status: FULL PCP: none Dispo: Observation med/surg. Plan to return home once medically stable. Clinically a lot better We will continue intravenous Unasyn and clindamycin for today and tomorrow Likely discharge on Wednesday on Augmentin and clindamycin Subjective 11/26 The patient was seen and examined in medical floor He has been feeling a lot better without any significant pain in throat Has been tolerating semisolid diet Plan to advanced as tolerated Review of Systems Review of Systems: All systems reviewed and are unremarkable except as noted below Ear, Nose, Mouth, Throat: + sore throat (Much improved) and + pain with swallowing (Much improved); no dysphagia Physical Exam Physical Exam: No apparent distress at rest and ambulating without difficulty Constitutional: not ill appearing Eyes: PERRL, conjunctivae normal, anicteric sclerae ENMT: external ear and nose normal, oropharynx normal Neck: trachea midline, no thyromegaly Respiratory: normal respiratory effort Auscultation: lungs clear to auscultation bilaterally Cardiovascular: Rate/Rhythm: regular rate and regular rhythm Heart Sounds: no murmur Gastrointestinal (Abdomen): Inspection/Auscultation: abdomen normal to inspection and normal bowel sounds Musculoskeletal: No acute arthritis Neurologic: PERRL, EOMI, accommodation nl, no face palsy, no dysarthria Results & Data Vital Signs (Past 12 Hours) Vital Signs Temp Pulse Resp BP Pulse Ox 11/26/18 08:42 36.7 C 58 L 19 158/97 H 97 Laboratory Results Short CBC 11/26/18 Range/Units 05:51 WBC 9.39 (4.8-10.8) K/uL Hgb 12.9 L (14.0-18.0) g/dL Hct 37.4 L (42-52) % Plt Count 137 (130-400) K/uL BMP 11/26/18 05:51 Sodium 143 Potassium 4.1 Chloride 112 H Carbon Dioxide 25 BUN 19 H Creatinine 0.88 Glucose 127 H Calcium 8.5 Medications Administered Current Inpatient Medications Acetaminophen (Ofirmev) 1,000 mg in 100 mls @ 400 mls/hr IV Q8H PRN PRN Reason: Pain or Fever Stop: 12/25/18 14:59 Last Infusion: 11/25/18 18:09 Dose: Infused Documented by: Ampicillin Sodium/Sulbactam Sodium 3,000 mg/ Sodium Chloride 108 mls @ 216 mls/hr IV Q6H [facility] Stop: 12/05/18 19:59 Last Admin: 11/26/18 14:30 Dose: 200 mls/hr Documented by: Clindamycin Phosphate 900 mg/ (Dextrose) 56 mls @ 112 mls/hr IV Q8H [facility] Stop: 12/05/18 17:59 Last Infusion: 11/26/18 11:01 Dose: Infused Documented by: Ketorolac Tromethamine (Toradol) 15 mg IV Q6H PRN PRN Reason: Pain Stop: 11/30/18 14:59 Last Admin: 11/26/18 11:31 Dose: 15 mg Documented by: Lactobacillus Acidophilus (Floranex) 4 tab PO TIDM [facility] Stop: 12/26/18 07:59 Last Admin: 11/26/18 11:27 Dose: 4 tab Documented by: Miscellaneous Information (Ampicillin/Sulbactam Consult) 1 ea N/A UD PRN PRN Reason: Consult Stop: 12/25/18 15:27 Morphine Sulfate (Morphine Sulfate) 4 mg IV Q4H PRN PRN Reason: Pain Stop: 12/09/18 14:59 Last Admin: 11/26/18 01:13 Dose: 4 mg Documented by: Ondansetron HCl (Zofran) 4 mg IV Q6H PRN PRN Reason: Nausea Stop: 12/25/18 14:59 Pantoprazole Sodium (Protonix) 40 mg PO QAM [facility] Stop: 12/26/18 08:59 Last Admin: 11/26/18 08:53 Dose: 40 mg Documented by: Polyethylene Glycol (Miralax Powder Packet) 17 gm PO DAILY PRN PRN Reason: Constipation Stop: 12/25/18 14:59 Zolpidem Tartrate (Ambien) 5 mg PO HS PRN PRN Reason: Sleep Stop: 12/25/18 14:59 Last Admin: 11/26/18 01:13 Dose: 5 mg Documented by:
[2018-11-27] MEDS: CLINDAMYCIN 900 MG in DEXTROSE 5% 50 ML IV SCH ×3 (01:47→17:55)
[2018-11-27] MEDS: AMPICILLIN/SULBACTAM SOD 3,000 MG in 0.9 % SODIUM CHLORIDE 100 ML IV SCH ×4 (02:25→20:38)
[2018-11-27 07:18] LABS: Hematocrit (blood only) 36.3 % (42-52); Hemoglobin 12.7 g/dL (14.0-18.0); Mean Corpuscular Volume 81.8 fL (80-100); Mean Platelet Volume 10.1 fL (7.4-10.4); Platelet Count 157 K/uL (130-400); RDW Coefficient of Variation 12.6 % (11.5-14.5); RDW Standard Deviation 37.7 fL (36.4-46.3); Red Blood Count 4.44 M/uL (4.7-6.1); White Blood Count 6.82 K/uL (4.8-10.8)
[2018-11-27 07:59] LABS: BUN Creatinine Ratio 19.3 (10-20); Calcium 8.6 mg/dl (8.5-10.1); Creatinine Clr Calc Pharmacy 118.9 ml/min; Est GFR (African American) 104.1; Est GFR (Non-African American) 89.8; Potassium 3.4 mmol/L (3.5-5.1)
[2018-11-27] MEDS: PANTOprazole 40 MG TAB PO SCH (08:38)
[2018-11-27] MEDS: LACTOBACILLUS ACIDOPHILUS (FLORANEX) TAB PO SCH ×3 (08:38→17:55)
[2018-11-27] MEDS: KETOROLAC TROMETHAMINE 15 MG/ML VIAL IV PRN (08:45)
--- NOTE | 2018-11-27 08:51 | Ears,Nose,Throat Progress Note ---
Date of Service November 27, 2018 Assessment & Plan (1) Peritonsillar abscess: He is largely out of the patel, but will benefit from 1 more day of IV antibiotics. I spoke with Vilma Borjas PA-C. In this discussion, I shared that he should go home on Augmentin (875-125) BID, and clindamycin (300 mg) TID for 1 week after discharge. His has already purchased life culture yogurt. Arrangements should be made for him to see me in my office on December 02. Present on Admission?: Yes Subjective He is sure that he felt cold all night but there were no change shaking chills. Physical Exam Physical Exam: General, he appears well and his voice is almost returned to normal. There was no fetid breath, and there was no trismus. Exam of the oropharynx showed 2 small hematomas, one at the posterior oropharyngeal wall of the left the second the peritonsillar area. These were the sites where I aspirated with a number 18-gauge needle on November 24. Results & Data Vital Signs (Past 12 Hours) Vital Signs Temp Pulse Resp BP Pulse Ox 11/27/18 08:22 36.7 C 58 L 19 166/104 H 99 11/26/18 23:00 36.4 C L 56 L 20 149/95 H 98
--- NOTE | 2018-11-27 17:03 | Discharge Summary ---
Date of Service November 27, 2018 Admission HPI Per Admitting Provider This is a 43yo M with a PMH of left tonsil cellulitis who returns to ED with throat pain and difficulty swallowing. Patient was admitted to our service on 11/23/18 with tonsillar cellulitis meeting sepsis criteria with fever of 38.8C, respiratory rate of 27, and leukocytosis of 18. Neck ultrasound without evidence of fluid collection to suggest abscess by sonography. Dr. Rousseau of ENT evaluated patient in ED and did not feel there is was peritonsillar abscess at that time. Received two total doses of dexamethasone 10mg IV and Unasyn. Yesterday afternoon, patient signed out AMA and was discharged on Augmentin and prednisone but was instructed to return to ED with worsening throat pain or difficulty swallowing. Patient returns today with worsening throat pain and difficulty swallowing. Is worried that he is not drinking enough fluids to stay hydrated due to painful swallowing. Also is concerned that he is not sleeping due to side effects from steroids. Denies any difficulty breathing. Denies any fever or chills. Still has left ear fullness and pain under his left jaw. Denies any headache, chest pain, palpitations, nausea, vomiting, abdominal pain, dysuria, diarrhea or constipation. Afebrile on presentation today. Leukocytosis of 13K down to 18 K. Saturating at 96% on room air. Discussed with Dr. Rousseau of ENT on the phone, who recommended continuing Unasyn and obtaining CT soft tissue neck with contrast. Discharge Data Allergies Allergy/AdvReac Type Severity Reaction Status Date / Time No Known Allergies Allergy Unverified 11/25/18 12:26 Consultations 11/25/18 13:11 ED Decision to Admit Stat 11/25/18 16:33 Consult Otolaryngology (Head and Neck) Routine Ordered Studies 11/25/18 13:40 CT soft tissue neck w con Stat Discharge Plan Discharge Items Reason For Visit: TONSILLAR CELLULITIS Prescriptions: No Action omeprazole 10 mg Capsule,Delayed Release(Dr/Ec) 10 mg PO QAM Qty: 0 RF: 0 amoxicillin-pot clavulanate [Augmentin] 875-125 mg tablet 1 tab PO Q12H Qty: 7 RF: 0 prednisone 20 mg tablet 40 mg PO DAILY Qty: 5 RF: 0 acetaminophen [Tylenol Extra Strength] 500 mg Tablet 1,000 mg PO UD PRN (Reason: Pain) RF: 0 Admission Data Admit Date/Time: 11/25/18 13:53 Attending Provider: Gume Cain Admit Provider: Gume Cain Primary Care Provider: PCP,NO Other Providers: Gume Cain ; Anatoliy Rousseau Service: Medical
--- NOTE | 2018-11-27 17:07 | Hospitalist Progress Note ---
Date of Service November 27, 2018 Assessment & Plan (1) Peritonsillar abscess: This is a 43yo M with a PMH of cellulitis of left tonsil who returns to ED with throat pain and difficulty swallowing and was found to have peritonsillar abscess. -Patient returns today after leaving AMA yesterday with worsening throat pain and difficulty swallowing -Soft tissue neck CT with a 3.6 cm left peritonsillar abscess with extension of inflammatory change in the parapharyngeal, retropharyngeal, and carotid spaces. No extension of inflammation to the superior mediastinum. Vasculature patent. Reactive left cervical lymphadenopathy. -Discussed with Dr. Rousseau, who evaluated patient this afternoon -Will add clinda 900mg Q8H and IV Decadron 10mg x 1 now -Clinically and symptomatically a lot better -Has been tolerating semisolid diet without any dysphagia -No observable neck swelling -Plan to continue IV antibiotic today and tomorrow and likely discharge on Wednesday on oral Augmentin and clindamycin -Clinically much improved and has been tolerating regular diet -No more symptoms reported -Discharged tomorrow on oral Augmentin and clindamycin as advised by ENT with a follow-up in ENT office in -Please get the time of appointment with Dr. Benedict the before discharge (2) HTN (hypertension): History of hypertension but does not take any medication at home -Will add PRN agent if needed (3) Insomnia: In setting of steroids -Ambien HS PRN (4) GERD (gastroesophageal reflux disease): Continue PPI DVT Ppx: srinivas hose . Increase ambulation Code status: FULL PCP: none Dispo: Observation med/surg. Plan to return home once medically stable. Clinically a lot better We will continue intravenous Unasyn and clindamycin for today and tomorrow Likely discharge on Wednesday on Augmentin and clindamycin Will need appointment with ENT on 11/26 The patient was seen and examined in medical floor He has been feeling a lot better without any significant pain in throat Has been tolerating semisolid diet Plan to advanced as tolerated 11/27 The patient was seen and examined in the medical floor He has been feeling a lot better Denies any throat pain and has been eating normal food No fever and/or chills Review of Systems Review of Systems: All systems reviewed and are unremarkable except as noted below Physical Exam Physical Exam: Sitting on a chair without any symptoms Constitutional: not ill appearing Eyes: PERRL, conjunctivae normal, anicteric sclerae ENMT: No tenderness in the tonsillar area and no adenopathy Neck: trachea midline, no thyromegaly Respiratory: normal respiratory effort Auscultation: lungs clear to auscultation bilaterally Cardiovascular: Rate/Rhythm: regular rate and regular rhythm Heart Sounds: no murmur Gastrointestinal (Abdomen): Inspection/Auscultation: abdomen normal to inspection and normal bowel sounds Neurologic: PERRL, EOMI, accommodation nl, no face palsy, no dysarthria Results & Data Vital Signs (Past 12 Hours) Vital Signs Temp Pulse Resp BP Pulse Ox 11/27/18 08:22 36.7 C 58 L 19 166/104 H 99 Laboratory Results Short CBC 11/27/18 Range/Units 07:04 WBC 6.82 (4.8-10.8) K/uL Hgb 12.7 L (14.0-18.0) g/dL Hct 36.3 L (42-52) % Plt Count 157 (130-400) K/uL BMP 11/27/18 07:04 Sodium 143 Potassium 3.4 L D Chloride 109 H Carbon Dioxide 27 BUN 20 H Creatinine 1.03 Glucose 89 Calcium 8.6 Medications Administered Current Inpatient Medications Acetaminophen (Ofirmev) 1,000 mg in 100 mls @ 400 mls/hr IV Q8H PRN PRN Reason: Pain or Fever Stop: 12/25/18 14:59 Last Infusion: 11/25/18 18:09 Dose: Infused Documented by: Ampicillin Sodium/Sulbactam Sodium 3,000 mg/ Sodium Chloride 108 mls @ 216 mls/hr IV Q6H SINGH Stop: 12/05/18 19:59 Last Infusion: 11/27/18 15:33 Dose: Infused Documented by: Clindamycin Phosphate 900 mg/ (Dextrose) 56 mls @ 112 mls/hr IV Q8H SINGH Stop: 12/05/18 17:59 Last Infusion: 11/27/18 10:43 Dose: Infused Documented by: Ketorolac Tromethamine (Toradol) 15 mg IV Q6H PRN PRN Reason: Pain Stop: 11/30/18 14:59 Last Admin: 11/27/18 08:45 Dose: 15 mg Documented by: Lactobacillus Acidophilus (Floranex) 4 tab PO TIDM [facility] Stop: 12/26/18 07:59 Last Admin: 11/27/18 11:48 Dose: 4 tab Documented by: Miscellaneous Information (Ampicillin/Sulbactam Consult) 1 ea N/A UD PRN PRN Reason: Consult Stop: 12/25/18 15:27 Morphine Sulfate (Morphine Sulfate) 4 mg IV Q4H PRN PRN Reason: Pain Stop: 12/09/18 14:59 Last Admin: 11/26/18 01:13 Dose: 4 mg Documented by: Ondansetron HCl (Zofran) 4 mg IV Q6H PRN PRN Reason: Nausea Stop: 12/25/18 14:59 Pantoprazole Sodium (Protonix) 40 mg PO QAM [facility] Stop: 12/26/18 08:59 Last Admin: 11/27/18 08:38 Dose: 40 mg Documented by: Polyethylene Glycol (Miralax Powder Packet) 17 gm PO DAILY PRN PRN Reason: Constipation Stop: 12/25/18 14:59 Zolpidem Tartrate (Ambien) 5 mg PO HS PRN PRN Reason: Sleep Stop: 12/25/18 14:59 Last Admin: 11/26/18 21:47 Dose: 5 mg Documented by:
[2018-11-27] MEDS: ZOLPIDEM TARTRATE 5 MG TAB PO PRN (22:04)
[2018-11-28] MEDS: CLINDAMYCIN 900 MG in DEXTROSE 5% 50 ML IV SCH ×2 (02:01→10:05)
[2018-11-28] MEDS: AMPICILLIN/SULBACTAM SOD 3,000 MG in 0.9 % SODIUM CHLORIDE 100 ML IV SCH ×2 (02:01→08:58)
[2018-11-28 08:28] LABS: Basophils # (auto) 0.01 K/uL (0-0.2); Basophils % (auto) 0.1 %; Eosinophils # (auto) 0.15 K/uL (0-0.5); Eosinophils % (auto) 1.7 %; Hematocrit (blood only) 39.1 % (42-52); Hemoglobin 14.1 g/dL (14.0-18.0); Immature Granulocytes # (auto) 0.09 K/uL (0.00-0.02); Lymphocytes % (auto) 15.5 %; Mean Corpuscular Hgb Conc 36.1 g/dL (32-36); Mean Corpuscular Volume 80.5 fL (80-100); Mean Platelet Volume 9.6 fL (7.4-10.4); Monocytes # (auto) 0.78 K/uL (0.11-0.59); Monocytes % (auto) 8.7 %; Neutrophils # (auto) 6.58 K/uL (1.4-6.5); Platelet Count 215 K/uL (130-400); RDW Coefficient of Variation 12.3 % (11.5-14.5); RDW Standard Deviation 35.9 fL (36.4-46.3); Red Blood Count 4.86 M/uL (4.7-6.1); White Blood Count 9.01 K/uL (4.8-10.8)
[2018-11-28 08:53] LABS: BUN Creatinine Ratio 11.6 (10-20); Calcium 9.1 mg/dl (8.5-10.1); Creatinine Clr Calc Pharmacy 107.5 ml/min; Est GFR (African American) 92.1; Est GFR (Non-African American) 79.4; Potassium 3.6 mmol/L (3.5-5.1)
[2018-11-28] MEDS: PANTOprazole 40 MG TAB PO SCH (08:57)
[2018-11-28] MEDS: LACTOBACILLUS ACIDOPHILUS (FLORANEX) TAB PO SCH ×2 (08:58→12:05)
[2018-11-28] MEDS: KETOROLAC TROMETHAMINE 15 MG/ML VIAL IV PRN (09:09)
[2018-11-28] MEDS ORDERED: AMLODIPINE BESYLATE 5 MG TAB PO ONE (12:00)
[2018-11-29] MEDS ORDERED: AMLODIPINE BESYLATE 5 MG TAB PO SCH (09:00)
--- NOTE | 2018-11-29 19:48 | Hospitalist Progress Note ---
Date of Service Late entry date of service November 28, 2018 November 29, 2018 Assessment & Plan (1) Peritonsillar abscess: Evaluated by ENT Dr. Benedict Recommend Augmentin and clindamycin x7 days Follow-up with Dr. Benedict on December 02 (2) HTN (hypertension): History of hypertension but does not take any medication at home Pressure uncontrolled, systolic 180s Amlodipine 5 mg p.o. daily ordered Advised to monitor blood pressure at home, call primary care physician if blood pressures persistently elevated above 150s Advised to call primary care physician if blood pressure is low systolic 110s and below, or if he is having lightheadedness or weakness Advised to follow-up with primary care physician this week Patient verbalized understanding and agreement (3) Insomnia: In setting of steroids -Ambien HS PRN (4) GERD (gastroesophageal reflux disease): Continue PPI Discharge to home, follow-up with primary care physician on December 01, follow-up with primary care physician December 02 Subjective Follow-up for tonsillar cellulitis Seen resting in bedside chair, comfortable, using computer In good spirits States he feels much better overall No tonsillar pain, problems swallowing Denies fever chills Denies headache, chest pain, shortness of breath, palpitations, dizziness Reevaluated in the afternoon Still comfortable, not in distress Asymptomatic Requesting to be discharged to home Review of Systems Review of Systems: All systems reviewed & are unremarkable except as noted in HPI & below Physical Exam Physical Exam: General- oriented x 3, not in distress, speaks in sentences with no effort or accessory muscle use Eyes- anicteric Oral exam-mild tonsillar erythema, no swelling, no exudates Neck- no JVD Lungs- clear breath sounds bilaterally, no rales/wheezes Heart- normal rate, regular rhythm; no murmurs Abdomen- normal bowel sounds, nondistended, soft, nontender Extremities- no pretibial edema, no calf tenderness Neuro- alert, oriented x 3; no gross focal neurologic deficits Skin- warm & dry Results & Data Laboratory Results All noted and reviewed
--- NOTE | 2018-11-29 19:48 | Discharge Summary ---
Date of Service November 29, 2018 Admission HPI Per Admitting Provider [place] [address] History & Physical Report Signed Patient: DAMIAN MATUTE Date: 11/25/18 MR#: [id number] Phy: Gume Cain MD Acct ID:[id number] Phy: PCP,NO Date: 1975Fam Phy: Age: 43Location: 4E Sex: M Room/Bed: [facility] cc: Gume Cain MD; Vilma Borjas PA-C~ *NOTICE TO RECEIVING [employer] PART[employer]/AGENCY This information is strictly Confidential and protected under [place] law. [place] law prohibits you from making any further disclosure of this information unless further disclosure is expressly permitted by the written consent of the person to whom it pertains or is authorized by law. A general authorization for the release of medical or other information is not sufficient for this purpose. Hospital accepts no responsibility if the information is made available to any other person, INCLUDING THE PATIENT. Date of Service November 25, 2018 Assessment & Plan (1) Peritonsillar abscess: This is a 43yo M with a PMH of cellulitis of left tonsil who returns to ED with throat pain and difficulty swallowing and was found to have peritonsillar abscess. -Patient returns today after leaving AMA yesterday with worsening throat pain and difficulty swallowing -Soft tissue neck CT with a 3.6 cm left peritonsillar abscess with extension of inflammatory change in the parapharyngeal, retropharyngeal, and carotid spaces. No extension of inflammation to the superior mediastinum. Vasculature patent. Reactive left cervical lymphadenopathy. -Discussed with Dr. Rousseau, who evaluated patient this afternoon -Will add clinda 900mg Q8H and IV Decadron 10mg x 1 now -Clear liquids for now, NPO after midnight -Unasyn, IV fluids, pain control (2) HTN (hypertension): History of hypertension but does not take any medication at home -Will add PRN agent if needed (3) Insomnia: In setting of steroids -Ambien HS PRN (4) GERD (gastroesophageal reflux disease): Continue PPI DVT Ppx: srinivas terrell Code status: FULL PCP: none Dispo: Observation med/surg. Plan to return home once medically stable. Patient seen in collaboration with Dr. Cain. Please see addendum. History of Present Illness Chief Complaint: throat pain Primary Care Provider: NO PCP This is a 43yo M with a PMH of left tonsil cellulitis who returns to ED with throat pain and difficulty swallowing. Patient was admitted to our service on 11/23/18 with tonsillar cellulitis meeting sepsis criteria with fever of 38.8C, respiratory rate of 27, and leukocytosis of 18. Neck ultrasound without evidence of fluid collection to suggest abscess by sonography. Dr. Rousseau of ENT evaluated patient in ED and did not feel there is was peritonsillar abscess at that time. Received two total doses of dexamethasone 10mg IV and Unasyn. Yest afternoon, patient signed out AMA and was discharged on Augmentin and prednisone but was instructed to return to ED with worsening throat pain or difficulty swallowing. Patient returns today with worsening throat pain and difficulty swallowing. Is worried that he is not drinking enough fluids to stay hydrated due to painful swallowing. Also is concerned that he is not sleeping due to side effects from steroids. Denies any difficulty breathing. Denies any fever or chills. Still has left ear fullness and pain under his left jaw. Denies any headache, chest pain, palpitations, nausea, vomiting, abdominal pain, dysuria, diarrhea or constipation. Afebrile on presentation today. Leukocytosis of 13K down to 18 K. Saturating at 96% on room air. Discussed with Dr. Rousseau of ENT on the phone, who recommended continuing Unasyn and obtaining CT soft tissue neck with contrast. Admission Exam Per Admitting Provider General Appearance: WD/WN, appears acutely ill. Oxygen saturation 96% on room air Head: normocephalic, atraumatic Eyes: normal inspection, PERRL, EOMI ENT: hearing grossly normal, left tonsil with soft palate swelling and deviation of uvula to the right. No trismus or muffled voice Neck: supple, no JVD, left submandibular lymphadenopathy Respiratory/Chest: lungs clear to auscultation. No wheezes, rales or rhonci. No respiratory distress or accessory muscle use Cardiovascular: regular rate, rhythm, no murmur, normal peripheral pulses Abdomen/GI: normal bowel sounds, soft, non-tender to palpation Extremities/Musculoskelatal: normal inspection, no calf tenderness, normal capillary refill, no pedal edema Neurologic/Psych: alert, normal mood/affect, oriented x 3 Skin: normal color, warm/dry Principal Diagnosis Peritonsillar abscess Discharge Exam General- oriented x 3, not in distress, speaks in sentences with no effort or accessory muscle use Eyes- anicteric Oral exam-mild tonsillar erythema, no swelling, no exudates Neck- no JVD Lungs- clear breath sounds bilaterally, no rales/wheezes Heart- normal rate, regular rhythm; no murmurs Abdomen- normal bowel sounds, nondistended, soft, nontender Extremities- no pretibial edema, no calf tenderness Neuro- alert, oriented x 3; no gross focal neurologic deficits Skin- warm & dry Discharge Data Allergies Allergy/AdvReac Type Severity Reaction Status Date / Time No Known Drug Allergies Allergy Verified 11/29/18 10:42 Consultations 11/25/18 13:11 ED Decision to Admit Stat 11/25/18 16:33 Consult Otolaryngology (Head and Neck) Routine Ordered Studies 11/25/18 13:40 CT soft tissue neck w con Stat CT soft tissue neck w con CLINICAL HISTORY: 43 years-old Male presenting with tonsillar infxn, eval for abscess, neck space infx. TECHNIQUE: Multidetector CT of the neck was performed after the administration of intravenous contrast. IV contrast: 94 mL of Optiray 320. One or more dose lowering techniques were used consistent with the principles of ALARA (as low as reasonably achievable), including automatic exposure control, mA or kV adjustment to individual patient size, and/or use of iterative reconstruction. COMPARISON: Ultrasound of the neck from 11/23/2018. CT DOSE (mGy.cm): The estimated cumulative dose is 529.18 mGy.cm. FINDINGS: Site Planner topogram: Unremarkable. Polypoid mucosal thickening in the left maxillary sinus. Remainder of the paranasal sinuses and mastoid air cells clear. Limited intracranial evaluation within normal limits. Orbits normal. Multilobular rim-enhancing collection in the left palantine tonsil measuring up to 3.6 cm in diameter. This results in significant effacement of the left glossotonsillar sulcus and left follicular. There is also extension of mucosal thickening inferiorly resulting in partial effacement of the left performed sinus. Aerated secretions noted in the hypopharynx. Mild hyperenhancement and mild hyperplasia of the lingual tonsillar tissue. Right palantine tonsil normal. There is suspected trace infiltration of the retropharyngeal fat plane. This does not involve the prevertebral musculature. This extends laterally to involve the post styloid parapharyngeal space/carotid space. Inflammatory change does not extend below the level of the cricoid cartilage. Vasculature remains patent. The larynx and upper trachea remain patent. Enlarged left cervical lymph nodes primarily in level 2A. Parotid, submandibular, and thyroid glands normal. No extension of inflammatory change to the superior mediastinum. Lung apices clear. Cervical spine normal. Skull base intact. IMPRESSION: 1. 3.6 cm left peritonsillar abscess with extension of inflammatory change in the parapharyngeal, retropharyngeal, and carotid spaces. No extension of inflammation to the superior mediastinum. Vasculature patent. Reactive left cervical lymphadenopathy. 2. Inflammation also results in mucosal thickening of the hypopharynx resulting in effacement of the left aspect of the hypopharynx. Hospital Course (1) Peritonsillar abscess: This is a 43yo M with a PMH of cellulitis of left tonsil who returns to ED with throat pain and difficulty swallowing and was found to have peritonsillar abscess. -Soft tissue neck CT with a 3.6 cm left peritonsillar abscess with extension of inflammatory change in the parapharyngeal, retropharyngeal, and carotid spaces. No extension of inflammation to the superior mediastinum. Vasculature patent. Reactive left cervical lymphadenopathy. ENT consulted, Dr. Benedict Given IV Decadron Placed on IV clindamycin and Unasyn Clinically improved, tolerating regular diet Dr. Benedict recommended Augmentin and clindamycin x 7 days Follow-up with Dr. Benedict on December 02 (2) HTN (hypertension): History of hypertension, off lisinopril Blood pressure pressure uncontrolled, systolic 150s -160s, systolic 180s on the day of discharge Amlodipine 5 mg p.o. daily ordered Advised to monitor blood pressure at home, call primary care physician if blood pressures persistently elevated above 150s Advised to call primary care physician if blood pressure is low systolic 110s and below, or if he is having lightheadedness or weakness Advised to follow-up with primary care physician this week Patient verbalized understanding and agreement (3) Insomnia: In setting of steroids -Ambien HS PRN (4) GERD (gastroesophageal reflux disease): Continue PPI Discharge to home, follow-up with primary care physician on December 01, follow-up with primary care physician December 02 Plan of care discussed with patient in detail and at length All questions answered He is understanding, comfortable, agreeable with plan of care Total Time Total Time Spent Total Time Spent (In Minutes): 50 minutes Discharge Plan Discharge Items Patient Disposition: Home - Self-Care Reason For Visit: TONSILLAR CELLULITIS Discharge Diagnosis: PERITONSILLAR ABSCESS Discharge Goals: Diagnostic testing and Therapeutic intervention Activity: As commented below Activity Comment: RESUME ACTIVITY GRADUALLY TOLERATED Exercise/Sports: Wait until after follow-up appointment Non-emergency contact: Primary Care Provider and Specialist Call non-emergency contact if: you have any medication questions, your symptoms worsen, your pain is not controlled, your pain is worsening and you have a fever Follow-up/Referrals: Demetrio Sahu III, CRNP [Nurse Practitioner] - 12/01/18 9:20 am Anatoliy Rousseau MD [Surgeon] - Diet: Heart Healthy Addtl Provider Instructions: PLEASE REVIEW YOUR NEW MEDICATION LIST AND FOLLOW INSTRUCTIONS CAREFULLY. FOLLOW UP WITH DR. ROUSSEAU ON SUNDAY DECEMBER 02, 2018. THE CLINIC WILL BE CALLING YOU FOR THE APPOINTMENT TIME. CALL PRIMARY CARE PHYSICIAN OR RETURN TO THE ER IMMEDIATELY IF WITH WORSENING OF SYMPTOMS, FEVER/CHILLS, LIGHTHEADEDNESS, HEADACHE, CHEST PAIN, SHORTNESS OF BREATH. Prescriptions: New amlodipine [Norvasc] 5 mg Tablet 5 mg PO QAM Qty: 30 RF: 2 clindamycin HCl 300 mg capsule 300 mg PO TID 7 Days Qty: 21 RF: 0 amoxicillin-pot clavulanate [Augmentin] 875-125 mg tablet 1 tab PO Q12H 7 Days Qty: 14 RF: 0 Continued omeprazole 10 mg Capsule,Delayed Release(Dr/Ec) 10 mg PO QAM Qty: 0 RF: 0 acetaminophen [Tylenol Extra Strength] 500 mg Tablet 1,000 mg PO UD PRN (Reason: Pain) RF: 0 Discontinued prednisone 20 mg tablet 40 mg PO DAILY Qty: 5 RF: 0 No Action lisinopril 20 mg tablet PO .TAKE 1 TABLET DAILY Qty: 30 RF: 0 atorvastatin 10 mg tablet PO .TAKE 1 TABLET DAILY. Qty: 30 RF: 0 methocarbamol 500 mg tablet 1 PO .TAKE 1 TABLET 4 time Qty: 28 RF: 0 Stand-Alone Forms: [facility] Discharge Orders: Discharge Order (Routine); Ordered 11/28/18 Ordered By: Sarbjit Miles Admission Data Admit Date/Time: 11/25/18 13:53 Attending Provider: Sarbjit Miles Admit Provider: Gume Cain Primary Care Provider: PCP,NO Other Providers: Gume Cain ; Anatoliy Rousseau Service: Medical Other Interventions: Discharge Summary Assessment (RN) Last Done: 11/28/18 13:26 DC Date/Time DO NOT enter until pt leaves facility: 11/28/18 13:52
== END 2018-11-28 13:52 | disposition home or self-care (01) ==
LOC: ED 11:56 → 4E 11:56 → SUATTDRO 13:53 → 4E 14:11